=== PATIENT | female | born 1990 | race Caucasian/White ===

== ENCOUNTER 2018-08-16 06:47 | Observation (INO) | payer BC, MEDICAID ==
[2018-08-16] MEDS ORDERED: Misoprostol 50 MCG (1/2 of 100 MCG) Tab ONE (08:07)
[2018-08-16] MEDS ORDERED: Misoprostol 50 MCG (1/2 of 100 MCG) Tab VAG ONE ×2 (08:08→14:57)
[2018-08-16] MEDS ORDERED: Acetaminophen 325 MG Tab PO PRN (08:15)
[2018-08-16] MEDS ORDERED: Ondansetron 4 MG Tab.DIS PO PRN (08:15)
[2018-08-16] MEDS ORDERED: fentaNYL 100 MCG/2 ML SDV IVPUSH PRN (08:15)
[2018-08-16] MEDS ORDERED: Sodium Chloride 0.9% 10 ML Syringe FLUSH PRN (08:15)
--- NOTE | 2018-08-16 08:28 | PCM.LDHP ---
L&D History of Present Illness - General Date of Service: 08/16/18 (induction) Admit Problem/Dx: Patient Status Order with Admit Dx/Problem 08/16/18 08:15 Patient Status [ADT] Routine Admission Diagnosis/Problem Admission Diagnosis/Problem Source of Information: Patient History Limitations: Reports: No Limitations - History of Present Illness Introduction:: 28 year old G1 who is 41 2/7 weeks who is here for induction post dates GBS positive, will treat HGB 10.8 CE /50/0 midposition Healthy young lady no major health problems, non smoker Timing/Duration: Reports: minutes: (2-3) Location, : Reports: Abdomen Quality: Reports: Ache Improves with: Reports: None Worsens with: Reports: None - Related Data Allergies/Adverse Reactions: Allergies Allergy/AdvReac Type Severity Reaction Status Date / Time No Known Allergies Allergy Verified 08/14/18 12:18 Home Medications: Home Meds PNV95/Ferrous Fumarate/FA [ Vitamin Tablet] 1 each PO DAILY 08/14/18 [ History] Past Medical History Respiratory History: Reports: Asthma 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: : 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 (Approximate): (JAY 08/08/18) - Infectious Disease History Infectious Disease History: Reports: Chicken Pox - Past Surgical History GI Surgical History: Reports: Appendectomy Social & Family History - Family History Family Medical History: Noncontributory - Tobacco Use Smoking Status *Q: Never Smoker Second Hand Smoke Exposure: No - Caffeine Use Caffeine Use: Reports: Coffee Other Caffeine Use: 1 cup/day - Recreational Drug Use Recreational Drug Use: No H&P Review of Systems - Review of Systems: Review Of Systems: See Below General: Reports: No Symptoms HEENT: Reports: No Symptoms Pulmonary: Reports: No Symptoms Cardiovascular: Reports: No Symptoms Gastrointestinal: Reports: No Symptoms Genitourinary: Reports: No Symptoms Musculoskeletal: Reports: No Symptoms Skin: Reports: No Symptoms Psychiatric: Reports: No Symptoms Neurological: Reports: No Symptoms Hematologic/Lymphatic: Reports: No Symptoms Immunologic: Reports: No Symptoms L&D Exam - Exam Exam: See Below - Vital Signs Vital Signs: Last Vital Signs Temp 99.0 F 08/16/18 07:15 Pulse 93 08/16/18 07:15 Resp 18 08/16/18 07:15 BP 134/78 08/16/18 07:15 Pulse Ox 97 08/16/18 07:15 Weight: 182 lb - OB Specific Contraction Duration (sec): 50-60 Contraction Frequency (min): x4 Contraction Intensity: Mild Movement: Active Heart Tones: Present Heart Rate (FHR) Variability: Moderate (6-25 bmp) Presentation: Vertex Estimated Weight: 7/8 pounds - Byers Score Byers Score Cervix Position: Midposition Byers Score Consistency: Soft Byers Score Effacement: 51-70% Byers Score Dilation: 1-2 cm Byers Score 's Station: -1 ,0 Byers Score Total: 8 - Exam General: Alert, Oriented HEENT: PERRLA, Mucosa Moist & [place] Neck: Supple Lungs: Clear to Auscultation, Normal Respiratory Effort Cardiovascular: Regular Rate, Regular Rhythm GI/Abdominal Exam: Normal Bowel Sounds, Soft, Non-Tender Rectal Exam: Normal Exam Genitourinary: Normal external exam, Cervical dilitation, Enlarged uterus Back Exam: Normal Inspection, Full Range of Motion Extremities: Normal Inspection, No Pedal Edema, Normal Capillary Refill Skin: Warm, Dry Neurological: Cranial Nerves Intact, Reflexes Equal Bilateral Psychiatric: Alert, Normal Affect, Normal Mood - Patient Data Lab Results Last 24 hrs: Laboratory Results - last 24 hr 08/16/18 08/16/18 Range/Units 07:17 07:17 WBC 12.5 H (4.5-11.0) K/uL RBC 4.08 (3.30-5.50) M/uL Hgb 10.8 L (12.0-15.0) g/dL Hct 33.9 L (36.0-48.0) % MCV 83 (80-98) fL MCH 27 (27-31) pg MCHC 32 (32-36) % Plt Count 269 (150-400) K/uL Neut % (Auto) 73 H (36-66) % Lymph % (Auto) 19 L (24-44) % [place] % (Auto) 8 H (2-6) % Eos % (Auto) 1 L (2-4) % Baso % (Auto) 0 (0-1) % Urine Color Yellow Urine Appearance Slightly cloudy Urine pH 6.0 (4.5-8.0) Ur Specific [place] 1.015 (1.008-1.030) Urine Protein Negative (NEGATIVE) mg/dL Urine Glucose (UA) Normal (NEGATIVE) mg/dL Urine Ketones Negative (NEGATIVE) mg/dL Urine Occult Blood Moderate (NEGATIVE) Urine Nitrite Negative (NEGATIVE) Urine Bilirubin Negative (NEGATIVE) Urine Urobilinogen Normal (NORMAL) mg/dL Ur Leukocyte Esterase Large (NEGATIVE) Urine RBC 5-10 H (0-5) Urine WBC 10-20 H (0-5) Ur Epithelial Cells Many Amorphous Sediment Not seen Urine Bacteria Moderate Urine Mucus Not seen Result Diagrams: 08/16/18 07:17 - Problem List (1) Post-dates SNOMED Code(s): 65540356 ICD Code: O48.0 - POST-TERM Status: Acute Current Visit: Yes (2) GBS (group B Streptococcus carrier), +RV culture, currently SNOMED Code(s): 2228838723241, 597164931, 9266717134591 ICD Code: O99.820 - STREPTOCOCCUS B CARRIER STATE COMPLICATING Status: Acute Current Visit: Yes (3) SNOMED Code(s): 13989476 ICD Code: Z34.90 - ENCNTR FOR SUPRVSN OF NORMAL , UNSP, UNSP TRIMESTER Status: Acute Current Visit: Yes Qualifiers: Weeks of gestation: 41 weeks Qualified Code(s): Z3A.41 - 41 weeks gestation of Problem List Initiated/Reviewed/Updated: Yes Orders Last 24hrs: Active Orders 24 hr Category Date Time Status Patient Status [ADT] Routine ADT 08/16/18 08:15 Ordered Ambulate [RC] PER UNIT ROUTINE Care 08/16/18 08:15 Ordered Antiembolic Devices [RC] .Routine Care 08/16/18 08:18 Ordered Communication Order [RC] ASDIRECTED Care 08/16/18 08:15 Ordered Communication Order [RC] Per Unit Routine Care 08/16/18 08:22 Ordered Communication Order [RC] Per Unit Routine Care 08/16/18 08:22 Ordered Communication Order [RC] Per Unit Routine Care 08/16/18 08:22 Ordered Non Stress Test [RC] Click to Edit Care 08/16/18 08:15 Ordered Nitrous Oxide Delivery [RC] ASDIRECTED Care 08/16/18 08:22 Ordered Notify Provider Vital Signs [RC] PRN Care 08/16/18 08:15 Ordered Notify Provider [RC] PRN Care 08/16/18 08:15 Ordered Oxygen Therapy [RC] ASDIRECTED Care 08/16/18 08:22 Ordered Pulse Oximetry [RC] ASDIRECTED Care 08/16/18 08:22 Ordered Up ad Autumn [RC] ASDIRECTED Care 08/16/18 08:15 Ordered VTE/DVT Education [RC] Click to Edit Care 08/16/18 08:18 Ordered Verify Patient Consent Obtain [RC] ASDIRECTED Care 08/16/18 08:22 Ordered Vital Signs [RC] PER UNIT ROUTINE Care 08/16/18 08:15 Ordered Vital Signs [RC] PER UNIT ROUTINE Care 08/16/18 08:22 Ordered Clear Liquid Diet [DIET] Diet 08/16/18 Lunch Ordered DRUG SCREEN, URINE [URCHEM] Routine Lab 08/16/18 08:15 Ordered Acetaminophen [Tylenol] Med 08/16/18 08:15 Ordered 650 mg PO Q4H PRN Ondansetron [Zofran ODT] Med 08/16/18 08:15 Ordered 4 mg PO Q4H PRN Oxytocin/Normal Saline [Pitocin in NS 20 Units/1,000 ML Med 08/16/18 08:20 Ordered ] 20 unit in 1,000 ml IV ONETIME Penicillin G Potassium [Pfizerpen] 2.5 millunits Med 08/16/18 08:30 Ordered Sodium Chloride 0.9% [Normal Saline] 50 ml IV Q4H Penicillin G Potassium [Pfizerpen] 5 millunits Med 08/16/18 08:20 Ordered Sodium Chloride 0.9% [Normal Saline] 100 ml IV ONETIME Sodium Chloride 0.9% [Saline Flush] Med 08/16/18 08:15 Ordered 10 ml FLUSH ASDIRECTED PRN fentaNYL [Sublimaze] Med 08/16/18 08:15 Ordered 100 mcg IVPUSH Q1H PRN DVT/VTE Prophylaxis Reflex [OM.PC] Routine Oth 08/16/18 08:15 Ordered Saline Lock Insert [OM.PC] Routine Oth 08/16/18 08:15 Ordered Resuscitation Status Routine Resus Stat 08/16/18 08:15 Ordered Medication Orders Acetaminophen (Tylenol) 650 mg PO Q4H PRN PRN Reason: Pain (Mild 1-3) and fever Fentanyl (Sublimaze) 100 mcg IVPUSH Q1H PRN PRN Reason: Pain (moderate 4-6) Oxytocin/Sodium Chloride (Pitocin In Ns 20 Units/1,000 Ml) 20 unit in 1,000 mls @ 999 mls/hr IV ONETIME ONE; Protocol Stop: 08/16/18 09:20 Penicillin G Potassium 5 (millunits/ Sodium Chloride) 100 mls @ 200 mls/hr IV ONETIME ONE Stop: 08/16/18 08:49 Penicillin G Potassium 2.5 (millunits/ Sodium Chloride) 50 mls @ 100 mls/hr IV Q4H GÓMEZ Ondansetron HCl (Zofran Odt) 4 mg PO Q4H PRN PRN Reason: Nausea/Vomiting Sodium Chloride (Saline Flush) 10 ml FLUSH ASDIRECTED PRN PRN Reason: Keep Vein Open Assessment/Plan Comment:: 08/16/18 28 year old G1 41 2/7 week post dates induction byers score 8, currently rey every 2-3 minutes, 50 mcg miso placed at 0815 GBS positive, treated with PCN HGB 10.8 Rubella immune HIV neg ABO A pos intermittent monitoring after one hour of monitoring Anticipate a vaginal delivery later today
[2018-08-16] MEDS ORDERED: Penicillin G Potassium 5 MILLUNITS in Sodium Chloride 0.9% 100 ML IV ONE ×4 (08:30)
--- NOTE | 2018-08-16 11:52 | PCM.PNLD ---
Labor Progress Note - VS & Meds Vital Signs: Last Vital Signs Temp 98.3 F 08/16/18 10:48 Pulse 72 08/16/18 10:48 Resp 18 08/16/18 10:48 BP 135/89 08/16/18 10:48 Pulse Ox 99 08/16/18 10:48 Active Medications: Current Medications Acetaminophen (Tylenol) 650 mg PO Q4H PRN PRN Reason: Pain (Mild 1-3) and fever Fentanyl (Sublimaze) 100 mcg IVPUSH Q1H PRN PRN Reason: Pain (moderate 4-6) Penicillin G Potassium 2.5 (millunits/ Sodium Chloride) 50 mls @ 100 mls/hr IV Q4H GÓMEZ Ondansetron HCl (Zofran Odt) 4 mg PO Q4H PRN PRN Reason: Nausea/Vomiting Sodium Chloride (Saline Flush) 10 ml FLUSH ASDIRECTED PRN PRN Reason: Keep Vein Open Discontinued Medications Oxytocin/Sodium Chloride (Pitocin In Ns 20 Units/1,000 Ml) 20 unit in 1,000 mls @ 999 mls/hr IV ONETIME ONE; Protocol Stop: 08/16/18 09:20 Penicillin G Potassium 5 (millunits/ Sodium Chloride) 100 mls @ 200 mls/hr IV ONETIME ONE Stop: 08/16/18 08:59 Last Admin: 08/16/18 08:39 Dose: 200 mls/hr Misoprostol (Cytotec) 50 mcg VAG ONETIME ONE Stop: 08/16/18 08:09 Last Admin: 08/16/18 08:10 Dose: 50 mcg Misoprostol (Cytotec) Confirm Administered Dose 50 mcg .ROUTE .STK-MED ONE Stop: 08/16/18 08:08 Last Admin: 08/16/18 08:09 Dose: Not Given - Uterine Contractions Uterine Monitoring Mode: External [place] Contraction Frequency (min): 1-2.5 Contraction Duration (sec): 30-70 Contraction Intensity: Mild to Moderate Uterine Resting Tone: Soft - Monitoring Heart Rate (FHR) Baseline: 140 Heart Rate (FHR) Variability: Moderate (6-25 bmp) Accelerations: Present, 15x15 Decelerations: None Strip Review: Category I - Vaginal Exam Dilation (cm): 1 Effacement (Percent): 80 Station: 0 Cervical Position: Midposition Sterile Vaginal Exam Performed By: Malena Antunez Vaginal Exam Comment: 50mcg Cytotec placed. - Labor Progress (Free Text) Labor Progress: contractions are sronger, but she is coping well. Cat one strip bloody show with exam, cervix remains the same DIl 1-2, 80 %, 0 Plan up and about will reassess at 1500 May given second dose of miso at that time.
[2018-08-16] MEDS: Penicillin G Potassium 2.5 MILLUNITS in Sodium Chloride 0.9% 50 ML IV SCH ×2 (12:23→16:18)
--- NOTE | 2018-08-16 15:05 | PCM.PNLD ---
Labor Progress Note - VS & Meds Vital Signs: Last Vital Signs Temp 98.3 F 08/16/18 10:48 Pulse 72 08/16/18 10:48 Resp 18 08/16/18 10:48 BP 135/89 08/16/18 10:48 Pulse Ox 99 08/16/18 10:48 Active Medications: Current Medications Acetaminophen (Tylenol) 650 mg PO Q4H PRN PRN Reason: Pain (Mild 1-3) and fever Fentanyl (Sublimaze) 100 mcg IVPUSH Q1H PRN PRN Reason: Pain (moderate 4-6) Penicillin G Potassium 2.5 (millunits/ Sodium Chloride) 50 mls @ 100 mls/hr IV Q4H GÓMEZ Last Admin: 08/16/18 12:23 Dose: 100 mls/hr Misoprostol (Cytotec) 50 mcg VAG ONETIME ONE Stop: 08/16/18 14:58 Ondansetron HCl (Zofran Odt) 4 mg PO Q4H PRN PRN Reason: Nausea/Vomiting Sodium Chloride (Saline Flush) 10 ml FLUSH ASDIRECTED PRN PRN Reason: Keep Vein Open Discontinued Medications Oxytocin/Sodium Chloride (Pitocin In Ns 20 Units/1,000 Ml) 20 unit in 1,000 mls @ 999 mls/hr IV ONETIME ONE; Protocol Stop: 08/16/18 09:20 Penicillin G Potassium 5 (millunits/ Sodium Chloride) 100 mls @ 200 mls/hr IV ONETIME ONE Stop: 08/16/18 08:59 Last Admin: 08/16/18 08:39 Dose: 200 mls/hr Misoprostol (Cytotec) 50 mcg VAG ONETIME ONE Stop: 08/16/18 08:09 Last Admin: 08/16/18 08:10 Dose: 50 mcg Misoprostol (Cytotec) Confirm Administered Dose 50 mcg .ROUTE .STK-MED ONE Stop: 08/16/18 08:08 Last Admin: 08/16/18 08:09 Dose: Not Given - Uterine Contractions Uterine Monitoring Mode: External [place] Contraction Frequency (min): 1.5-2.5 Contraction Duration (sec): 30-60 Contraction Intensity: Mild to Moderate Uterine Resting Tone: Soft - Monitoring Heart Rate (FHR) Baseline: 140 Heart Rate (FHR) Variability: Moderate (6-25 bmp) Accelerations: Present, 15x15 Decelerations: None Strip Review: Category I - Vaginal Exam Dilation (cm): 1 Effacement (Percent): 80 Station: 0 Cervical Position: Midposition Sterile Vaginal Exam Performed By: Malena Antunez Vaginal Exam Comment: 50mcg Cytotec placed. - Labor Progress (Free Text) Labor Progress: no change from this morning. repeated Miso dose at 50 mcg. Started the discussion about going home this evening and returning if labor starts or for induction with pitocin. Will talk more about this afternoon clinic hours.
--- NOTE | 2018-08-16 19:48 | PCM.PNLD ---
Labor Progress Note - VS & Meds Vital Signs: Last Vital Signs Temp 98.6 F 08/16/18 18:00 Pulse 87 08/16/18 18:30 Resp 18 08/16/18 18:30 BP 130/68 08/16/18 18:30 Pulse Ox 99 08/16/18 18:30 Active Medications: Current Medications Acetaminophen (Tylenol) 650 mg PO Q4H PRN PRN Reason: Pain (Mild 1-3) and fever Fentanyl (Sublimaze) 100 mcg IVPUSH Q1H PRN PRN Reason: Pain (moderate 4-6) Penicillin G Potassium 2.5 (millunits/ Sodium Chloride) 50 mls @ 100 mls/hr IV Q4H GÓMEZ Last Admin: 08/16/18 16:18 Dose: 100 mls/hr Ondansetron HCl (Zofran Odt) 4 mg PO Q4H PRN PRN Reason: Nausea/Vomiting Sodium Chloride (Saline Flush) 10 ml FLUSH ASDIRECTED PRN PRN Reason: Keep Vein Open Discontinued Medications Oxytocin/Sodium Chloride (Pitocin In Ns 20 Units/1,000 Ml) 20 unit in 1,000 mls @ 999 mls/hr IV ONETIME ONE; Protocol Stop: 08/16/18 09:20 Penicillin G Potassium 5 (millunits/ Sodium Chloride) 100 mls @ 200 mls/hr IV ONETIME ONE Stop: 08/16/18 08:59 Last Admin: 08/16/18 08:39 Dose: 200 mls/hr Misoprostol (Cytotec) 50 mcg VAG ONETIME ONE Stop: 08/16/18 08:09 Last Admin: 08/16/18 08:10 Dose: 50 mcg Misoprostol (Cytotec) Confirm Administered Dose 50 mcg .ROUTE .STK-MED ONE Stop: 08/16/18 08:08 Last Admin: 08/16/18 08:09 Dose: Not Given Misoprostol (Cytotec) 50 mcg VAG ONETIME ONE Stop: 08/16/18 14:58 Last Admin: 08/16/18 14:57 Dose: 50 mcg - Uterine Contractions Uterine Monitoring Mode: External [place] Contraction Frequency (min): 2-3 Contraction Duration (sec): 50-70 Contraction Intensity: Mild to Moderate Uterine Resting Tone: Soft - Monitoring Monitor Mode: Doppler/Auscultation Heart Rate (FHR) Baseline: 140 Heart Rate (FHR) Variability: Moderate (6-25 bmp) Accelerations: Present, 15x15 Decelerations: None Strip Review: Category I - Vaginal Exam Dilation (cm): 1.5 Effacement (Percent): 80 Station: 0 Cervical Position: Midposition Sterile Vaginal Exam Performed By: Malena Antunez Vaginal Exam Comment: no change in cervix - Labor Progress (Free Text) Labor Progress: no labor dispite contractions. Cervix remains the same. Plan send her home and return on am if no labor before. Reviewed signs and symptoms of labor and when to return. Ming[place] given for sleep for the next three nights. questions answered and induction scheduled for .
== END 2018-08-16 20:15 | disposition home or self-care (01) ==
LOC: JP.OB 06:47
PROVIDERS: ADMIT Nurse Practitioner Family; ATTEND Nurse Practitioner Family
DX: O48.0 Post-term pregnancy (principal); O99.820 Streptococcus B carrier state complicating pregnancy; Z3A.41 41 weeks gestation of pregnancy; Z79.899 Other long term (current) drug therapy
CPT/HCPCS: 36415; 80305; 81001; 85025; 99211; A9270; J2540; J7030; J7050

== ENCOUNTER 2018-08-17 16:53 | Inpatient (IN) | payer BC, MEDICAID ==
[2018-08-17] MEDS ORDERED: Acetaminophen 325 MG Tab PO PRN (17:38)
[2018-08-17] MEDS ORDERED: Sodium Chloride 0.9% 10 ML Syringe FLUSH PRN (17:38)
[2018-08-17] MEDS ORDERED: Penicillin G Potassium 5 MILLUNITS in Sodium Chloride 0.9% 50 ML IV ONE (17:43)
--- NOTE | 2018-08-17 18:05 | PCM.LDHP ---
L&D History of Present Illness - General Date of Service: 08/17/18 Admit Problem/Dx: Patient Status Order with Admit Dx/Problem 08/17/18 17:35 Admission Status [Patient Status] [ADT] Routine 08/17/18 17:39 Patient Status [ADT] Routine Admission Diagnosis/Problem Admission Diagnosis/Problem Source of Information: Patient History Limitations: Reports: No Limitations - Related Data Allergies/Adverse Reactions: Allergies Allergy/AdvReac Type Severity Reaction Status Date / Time No Known Allergies Allergy Verified 08/14/18 12:18 Home Medications: Home Meds PNV95/Ferrous Fumarate/FA [ Vitamin Tablet] 1 each PO DAILY 08/14/18 [ History] Past Medical History Respiratory History: Reports: Asthma 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: - Infectious Disease History Infectious Disease History: Reports: Chicken Pox - Past Surgical History GI Surgical History: Reports: Appendectomy Social & Family History - Family History Family Medical History: Noncontributory - Caffeine Use Caffeine Use: Reports: Coffee Other Caffeine Use: 1 cup/day H&P Review of Systems - Review of Systems: Review Of Systems: See Below General: Reports: No Symptoms HEENT: Reports: No Symptoms Pulmonary: Reports: No Symptoms Cardiovascular: Reports: No Symptoms Gastrointestinal: Reports: No Symptoms Genitourinary: Reports: No Symptoms Musculoskeletal: Reports: No Symptoms Skin: Reports: No Symptoms Psychiatric: Reports: No Symptoms Neurological: Reports: No Symptoms Hematologic/Lymphatic: Reports: No Symptoms Immunologic: Reports: No Symptoms L&D Exam - Exam Exam: See Below - Vital Signs Weight: 82.554 kg - OB Specific Contraction Intensity: Mild to Moderate Movement: Active Heart Tones: Present Heart Rate (FHR) Variability: Moderate (6-25 bmp) Presentation: Vertex - Brandt Score Brandt Score Cervix Position: Midposition Brandt Score Consistency: Soft Brandt Score Effacement: >80% Brandt Score Dilation: 1-2 cm Brandt Score 's Station: -1 ,0 Brandt Score Total: 9 - Exam General: Alert, Oriented HEENT: PERRLA, Conjunctiva Clear, EACs Clear, EOMI, Hearing Intact, Mucosa Moist & [place], Nares Patent, Normal Nasal Septum, Posterior Pharynx Clear, TMs Clear Neck: Supple, Trachea Midline Lungs: Clear to Auscultation, Normal Respiratory Effort Cardiovascular: Regular Rate, Regular Rhythm GI/Abdominal Exam: Normal Bowel Sounds, Soft, Non-Tender, No Organomegaly, No Distention, No Abnormal Bruit, No Mass, Pelvis Stable Rectal Exam: Normal Exam, Normal Rectal Tone Genitourinary: Normal external exam, Normal bimanual exam, Normal speculum exam Back Exam: Normal Inspection, Full Range of Motion Extremities: Normal Inspection, Normal Range of Motion, Non-Tender, No Pedal Edema, Normal Capillary Refill Skin: Warm, Dry, Intact Neurological: Cranial Nerves Intact, Reflexes Equal Bilateral Psychiatric: Alert, Normal Affect, Normal Mood - Patient Data Lab Results Last 24 hrs: Laboratory Results - last 24 hr 08/17/18 Range/Units 17:18 Membrane Rupture Positive H (NEGATIVE) - Problem List (1) PROM (premature rupture of membranes) SNOMED Code(s): 74563533 ICD Code: O42.90 - MIKE ROM, 7TH0 BETW RUPT & ONST LABR, UNSP WEEKS OF GEST Status: Acute Current Visit: Yes Qualifiers: PROM onset of labor timing: onset of labor within 24 hours of rupture PROM gestational age: full term Qualified Code(s): O42.02 - Full-term premature rupture of membranes, onset of labor within 24 hours of rupture (2) Post-dates SNOMED Code(s): 33667552 ICD Code: O48.0 - POST-TERM Status: Acute Current Visit: Yes Qualifiers: Post-term type: 40-42 weeks gestation Qualified Code(s): O48.0 - Post-term (3) GBS (group B Streptococcus carrier), +RV culture, currently SNOMED Code(s): 6053194869303, 203761875, 1579912832778 ICD Code: O99.820 - STREPTOCOCCUS B CARRIER STATE COMPLICATING Status: Acute Priority: High Current Visit: Yes (4) SNOMED Code(s): 56792067 ICD Code: Z34.90 - ENCNTR FOR SUPRVSN OF NORMAL , UNSP, UNSP TRIMESTER Status: Acute Current Visit: Yes Qualifiers: Weeks of gestation: 41 weeks Problem List Initiated/Reviewed/Updated: Yes Orders Last 24hrs: Active Orders 24 hr Category Date Time Status Admission Status [Patient Status] [ADT] Routine ADT 08/17/18 17:35 Active Patient Status [ADT] Routine ADT 08/17/18 17:39 Ordered Ambulate [RC] PER UNIT ROUTINE Care 08/17/18 17:38 Ordered Communication Order [RC] ASDIRECTED Care 08/17/18 17:39 Ordered Dietary Supplements [RC] BIDMEALS Care 08/17/18 17:44 Ordered Heart Tones [RC] PER UNIT ROUTINE Care 08/17/18 17:39 Ordered Non Stress Test [RC] Click to Edit Care 08/17/18 17:39 Ordered May Shower [RC] ASDIRECTED Care 08/17/18 17:38 Ordered Notify Provider Vital Signs [RC] PRN Care 08/17/18 17:38 Ordered Notify Provider [RC] PRN Care 08/17/18 17:39 Ordered OB Check [OM.PC] Click to Edit Care 08/17/18 17:18 Ordered Up ad Autumn [RC] ASDIRECTED Care 08/17/18 17:38 Ordered VTE/DVT Education [RC] Click to Edit Care 08/17/18 17:42 Ordered Vital Signs [RC] PER UNIT ROUTINE Care 08/17/18 17:39 Ordered Regular Diet [DIET] Diet 08/17/18 Dinner Ordered CBC WITH AUTO DIFF [HEME] Routine Lab 08/17/18 17:38 Ordered DRUG SCREEN, URINE [URCHEM] Routine Lab 08/17/18 17:38 Ordered UA W/MICROSCOPIC [URIN] Routine Lab 08/17/18 17:02 Ordered Acetaminophen [Tylenol] Med 08/17/18 17:38 Ordered 650 mg PO Q4H PRN Ondansetron [Zofran] Med 08/17/18 17:38 Ordered 4 mg IV Q4H PRN Oxytocin/Normal Saline [Pitocin in NS 20 Units/1,000 ML Med 08/17/18 17:45 Ordered ] 20 unit in 1,000 ml IV TITRATE Penicillin G Potassium [Pfizerpen] 2.5 millunits Med 08/17/18 21:45 Ordered Sodium Chloride 0.9% [Normal Saline] 50 ml IV Q4H Penicillin G Potassium [Pfizerpen] 5 millunits Med 08/17/18 17:43 Ordered Sodium Chloride 0.9% [Normal Saline] 50 ml IV ONETIME Sodium Chloride 0.9% [Saline Flush] Med 08/17/18 17:38 Ordered 10 ml FLUSH ASDIRECTED PRN DVT/VTE Prophylaxis Reflex [OM.PC] Routine Oth 08/17/18 17:38 Ordered Saline Lock Insert [OM.PC] Routine Oth 08/17/18 17:39 Ordered Resuscitation Status Routine Resus Stat 08/17/18 17:38 Ordered Medication Orders Acetaminophen (Tylenol) 650 mg PO Q4H PRN PRN Reason: Pain (Mild 1-3) and fever Oxytocin/Sodium Chloride (Pitocin In Ns 20 Units/1,000 Ml) 20 unit in 1,000 mls @ 6 mls/hr IV TITRATE GÓMEZ; Protocol Penicillin G Potassium 5 (millunits/ Sodium Chloride) 50 mls @ 100 mls/hr IV ONETIME ONE Stop: 08/17/18 18:12 Penicillin G Potassium 2.5 (millunits/ Sodium Chloride) 50 mls @ 100 mls/hr IV Q4H GÓMEZ Ondansetron HCl (Zofran) 4 mg IV Q4H PRN PRN Reason: Nausea/Vomiting Sodium Chloride (Saline Flush) 10 ml FLUSH ASDIRECTED PRN PRN Reason: Keep Vein Open Assessment/Plan Comment:: 08/17/2018 28 here at 41 3/7 gestational weeks, she SROM at home and came in to be evaluated Amnisure was positive SVE-1.5/90/0 FHTs category one Contractions irregular Plan- Admit patient Continue to monitor for labor Continue to monitor FHTs Start pitocin per protocol now Start PCN G for GBS positive now Pain management per patient request Plan and anticipate a vaginal delivery
[2018-08-17] MEDS ORDERED: Lactated Ringers 1,000 ML IV ONE (20:57)
[2018-08-17] MEDS ORDERED: ePHEDrine 50 MG/ML SDV IVPUSH PRN (20:57)
--- NOTE | 2018-08-17 20:57 | PCM.PNLD ---
Labor Progress Note - VS & Meds Vital Signs: Last Vital Signs Temp 37.0 C 08/17/18 20:00 Pulse 83 08/17/18 20:00 Resp 16 08/17/18 20:00 BP 122/83 08/17/18 20:00 Pulse Ox 98 08/17/18 20:00 Active Medications: Current Medications Acetaminophen (Tylenol) 650 mg PO Q4H PRN PRN Reason: Pain (Mild 1-3) and fever Oxytocin/Sodium Chloride (Pitocin In Ns 20 Units/1,000 Ml) 20 unit in 1,000 mls @ 6 mls/hr IV TITRATE GÓMEZ; Protocol Last Titration: 08/17/18 20:08 Dose: 9 mls/hr Penicillin G Potassium 2.5 (millunits/ Sodium Chloride) 50 mls @ 100 mls/hr IV Q4H GÓMEZ Ondansetron HCl (Zofran) 4 mg IV Q4H PRN PRN Reason: Nausea/Vomiting Sodium Chloride (Saline Flush) 10 ml FLUSH ASDIRECTED PRN PRN Reason: Keep Vein Open Discontinued Medications Penicillin G Potassium 5 (millunits/ Sodium Chloride) 50 mls @ 100 mls/hr IV ONETIME ONE Stop: 08/17/18 18:12 Last Admin: 08/17/18 19:06 Dose: 100 mls/hr Penicillin G Potassium 2.5 (millunits/ Sodium Chloride) 50 mls @ 100 mls/hr IV Q4H GÓMEZ - Uterine Contractions Uterine Monitoring Mode: External [place] Contraction Frequency (min): 3-4 Contraction Duration (sec): 60-90 Contraction Intensity: Mild Uterine Resting Tone: Soft - Monitoring Monitor Mode: External [place] Heart Rate (FHR) Variability: Moderate (6-25 bmp) - Vaginal Exam Dilation (cm): 3 Effacement (Percent): 90 Station: 0 Cervical Position: Midposition Sterile Vaginal Exam Performed By: Allegra Clay - Labor Progress (Free Text) Labor Progress: 08/17/2018 Patient is starting to feel contractions more SVE-3/90/0 FHTs category one Patient currently on pitocin PCN first dose in Plan- Continue to monitor FHTs Continue to monitor labor Patient may be up ad jim Patient may get in tub Continue pitocin per protocol Continue PCN G per protocol Pain management per patient request Plan and anticipate a vaginal delivery
[2018-08-17] MEDS ORDERED: Lidocaine 1% 20 ML MDV INJECT ONE (20:58)
[2018-08-17] MEDS ORDERED: Oxytocin 10 Units/1 ML SDV IM ONE (21:00)
[2018-08-17] MEDS ORDERED: Penicillin G Potassium 2.5 MILLUNITS in Sodium Chloride 0.9% 50 ML IV SCH (22:00)
[2018-08-17] MEDS ORDERED: Ropivacaine 100 ML ONE (23:26)
[2018-08-17] MEDS: Penicillin G Potassium 2.5 MILLUNITS in Sodium Chloride 0.9% 50 ML IV SCH (23:37)
[2018-08-17] MEDS ORDERED: Naloxone 0.4 MG/ML SDV IVPUSH PRN (23:43)
--- NOTE | 2018-08-18 02:01 | ANES ---
DATE OF SERVICE: 08/17/2018 Ana is a 28-year-old female patient of [facility], in for labor. I was called late this evening for a labor epidural for the patient, was at the bedside at approximately 2255. A brief history and physical was reviewed with the patient. The patient denies any bleeding issues. Platelet count was 280. Denies having any real significant health issues. Very normal according to the patient. Risks and benefits were reviewed with the patient. The patient verbalizes her understanding, wishes to proceed with the labor epidural. The patient was then sat at the edge of the bed. Betadine prep x3 to the lumbar region was done. Sterile drape was placed. 1% lidocaine skin wheal and deep was done. A 17-gauge Tuohy needle was inserted at approximately the L4-5 position. Loss of resistance was achieved at approximately 6 cm. Negative paresthesia, negative heme, negative CSF were noted. I then proceeded to thread a catheter through the Touhy needle. Catheter was easily threaded. Tuohy needle was withdrawn. Catheter was pulled back to approximately 14 cm at the skin and secured at that time. Three milliliter test dose was given. The patient was laid in the supine position with left uterine displacement. After 3-4 minutes after the test dose, the patient was showing no signs of local anesthetic toxicity or intravascular injection of local anesthesia. I then proceeded to give the patient 12 mL of 0.2% ropivacaine bolus via the epidural and started her on 0.2% ropivacaine drip at 12 mL an hour. The patient's vital signs were stable. Please refer to the nurse's notes for vital signs. We will continue to monitor this patient closely. Arash Arevalo CRNA /[id number]
[2018-08-18] MEDS ORDERED: Lidocaine 1% 20 ML MDV INJECT ONE ×2 (03:00→03:59)
[2018-08-18] MEDS: Penicillin G Potassium 2.5 MILLUNITS in Sodium Chloride 0.9% 50 ML IV SCH ×3 (03:21→11:53)
[2018-08-18] MEDS ORDERED: Lidocaine 1% 50 ML MDV ONE (03:57)
[2018-08-18] MEDS ORDERED: Oxytocin 10 Units/1 ML SDV IM ONE (04:00)
[2018-08-18] MEDS: Ondansetron 4 MG/2 ML SDV IV PRN ×2 (04:51→09:06)
[2018-08-18] MEDS ORDERED: Ropivacaine 200 MG in Premix Bag 1 BAG EPIDUR SCH (05:15)
--- NOTE | 2018-08-18 05:32 | PCM.PNLD ---
Labor Progress Note - VS & Meds Vital Signs: Last Vital Signs Temp 37.4 C 08/18/18 03:00 Pulse 94 08/18/18 04:30 Resp 16 08/18/18 04:30 BP 130/79 08/18/18 04:30 Pulse Ox 98 08/18/18 04:30 Active Medications: Current Medications Acetaminophen (Tylenol) 650 mg PO Q4H PRN PRN Reason: Pain (Mild 1-3) and fever Ephedrine Sulfate (Ephedrine Sulfate) 10 mg IVPUSH ASDIRECTED PRN PRN Reason: Hypotension Oxytocin/Sodium Chloride (Pitocin In Ns 20 Units/1,000 Ml) 20 unit in 1,000 mls @ 6 mls/hr IV TITRATE [facility]; Protocol Last Titration: 08/18/18 01:39 Dose: 15 mls/hr Penicillin G Potassium 2.5 (millunits/ Sodium Chloride) 50 mls @ 100 mls/hr IV Q4H [facility] Last Admin: 08/18/18 03:21 Dose: 100 mls/hr Ropivacaine 200 mg/ Premix 100 mls @ 12 mls/hr EPIDUR ASDIRECTED [facility] Last Admin: 08/18/18 05:11 Dose: 12 mls/hr Naloxone HCl (Narcan) 0.1 mg IVPUSH Q5M PRN PRN Reason: IF RESP RATE LESS THAN 6 Ondansetron HCl (Zofran) 4 mg IV Q4H PRN PRN Reason: Nausea/Vomiting Last Admin: 08/18/18 04:51 Dose: 4 mg Sodium Chloride (Saline Flush) 10 ml FLUSH ASDIRECTED PRN PRN Reason: Keep Vein Open Discontinued Medications Penicillin G Potassium 5 (millunits/ Sodium Chloride) 50 mls @ 100 mls/hr IV ONETIME ONE Stop: 08/17/18 18:12 Last Admin: 08/17/18 19:06 Dose: 100 mls/hr Penicillin G Potassium 2.5 (millunits/ Sodium Chloride) 50 mls @ 100 mls/hr IV Q4H [facility] Lactated Ringer's (Ringers, Lactated) 1,000 mls @ 999 mls/hr IV .BOLUS ONE Stop: 08/17/18 21:57 Last Admin: 08/17/18 22:00 Dose: 999 mls/hr Ropivacaine (Naropin 0.2%) Confirm Administered Dose 100 mls @ as directed .ROUTE .STK-MED ONE Stop: 08/17/18 23:27 Lidocaine HCl (Xylocaine 1%) 20 ml INJECT ONETIME ONE Stop: 08/17/18 20:59 Last Admin: 08/18/18 03:58 Dose: Not Given Lidocaine HCl (Xylocaine 1%) 20 ml INJECT ONETIME ONE Stop: 08/18/18 03:01 Last Admin: 08/18/18 03:58 Dose: Not Given Lidocaine HCl (Xylocaine 1%) 50 ml INJECT ONETIME ONE Stop: 08/18/18 04:00 Lidocaine HCl (Xylocaine 1%) Confirm Administered Dose 100 ml .ROUTE .STK-MED ONE Stop: 08/18/18 03:58 Last Admin: 08/18/18 04:48 Dose: Not Given Oxytocin (Pitocin) 10 unit IM ONETIME ONE Stop: 08/17/18 21:01 Last Admin: 08/18/18 03:58 Dose: Not Given Oxytocin (Pitocin) 10 unit IM ONETIME ONE Stop: 08/18/18 04:01 - Uterine Contractions Uterine Monitoring Mode: External [place] Contraction Frequency (min): 1.5-3 Contraction Duration (sec): 50-100 Contraction Intensity: Moderate to Strong Uterine Resting Tone: Soft - Monitoring Monitor Mode: External Ultrasound Heart Rate (FHR) Variability: Moderate (6-25 bmp) - Vaginal Exam Dilation (cm): 10 Effacement (Percent): 100 Station: -1 Cervical Position: Midposition Sterile Vaginal Exam Performed By: Allegra Clay Vaginal Exam Comment: pt complete - Labor Progress (Free Text) Labor Progress: 08/18/2018 Patient has progressed nicely throughout the night Did get an epidural before midnight SVE-10/100/0 lots of caput FHTs category one Patient is having pain in lower abdomen and back at this time Plan- Will have anesthesia come and see if they can help her pain at this time Continue to monitor FHTs Continue to monitor labor Continue pitocin per protocol Continue PCN G per protocol Plan to start pushing soon Plan and anticipate a vaginal delivery
[2018-08-18] MEDS ORDERED: Acetaminophen 1,000 MG in Premix Bag 1 BAG IV ONE (06:43)
[2018-08-18] MEDS ORDERED: Carboprost Tromethamine 250 MCG/1 ML Amp ONE (08:17)
[2018-08-18] MEDS: Methylergonovine 0.2 MG/1 ML Amp ONE ×2 (08:23→09:14)
[2018-08-18] MEDS: Misoprostol 200 MCG Tab ONE ×2 (08:24→09:14)
[2018-08-18] MEDS ORDERED: Methylergonovine 0.2 MG/1 ML Amp IM PRN (08:46)
[2018-08-18] MEDS ORDERED: Misoprostol 100 MCG Tab PO ONE (08:49)
[2018-08-18] MEDS ORDERED: Misoprostol 200 MCG Tab RECTAL ONE (08:51)
[2018-08-18] MEDS ORDERED: Carboprost Tromethamine 250 MCG/1 ML Amp IM ONE (08:52)
[2018-08-18] MEDS ORDERED: Acetaminophen/Codeine 300-30 MG Tab PO PRN (09:41)
[2018-08-18] MEDS ORDERED: Acetaminophen 325 MG Tab, 50 Tab Bulk Bottle PO PRN (09:41)
[2018-08-18] MEDS ORDERED: Hydrocortisone 2.5% Crm 30 GM Tube TOP PRN (09:41)
[2018-08-18] MEDS ORDERED: Witch Hazel Medicated Pads 100/Jar TOP PRN (09:41)
[2018-08-18] MEDS ORDERED: Benzocaine 20% Top Spray 56 GM Bottle TOP PRN (09:41)
[2018-08-18] MEDS ORDERED: Ibuprofen 200 MG Tab, 24 Tab Bulk Bottle PO PRN (09:41)
[2018-08-18] MEDS ORDERED: Lanolin 100% Cream 40 GM Tube TOP PRN (09:41)
--- NOTE | 2018-08-18 10:06 | PCM.DEL ---
L & D Note - General Info Date of Service: 08/18/18 Mother's Due Date: 08/08/18 - Delivery Note Labor: Augmented by Oxytocin Delivery Outcome: Livebirth Infant Delivery Method: Spontaneous Vaginal Delivery-Single Delivery Mode: Vacuum Extraction Presentation: Right Occiput Anterior (RENO) (slight right handed compounde) Nuchal Cord: None Anesthesia Type: Epidural Episiotomy Type: Right Mediolateral (slight extension) Laceration: Sulcus (small repaired) Placenta: Intact, Spontaneous Cord: 3 Vessels Estimated Blood Loss: 800 Resuscitation Needed: Yes [place]: Bulb Syringe, Stimulated, Warmed Score 1 min: 5 Score 5 min: 6 Score 10 min: 8 Second Stage Interventions: Reports: Second Nurse Assessed Progress of Descent, Second Nurse Reviewed Contraction Pattern, Second Nurse Reviewed Heart Tones, Encouragement Given, Laboring Down, Pushing Effectively, Pushing, Feet in Foot Rests, Pushing, Knee Chest Position, Pushing, Left Side, Pushing, McRobert's Position, Pushing, Pulls Own Legs Back, Pushing, Right Side, Pushing , Squat Bar Pulling on Device, Pushing, Squat Bar Pulling on Sheet, Pushing, Stirrups/Leg Supports Delivery Comments (Free Text/Narrative):: 08/18/2018 28 yo at 41 4/7 weeks gestation delivered a viable male infant in [place] with partial compound presentation at 0811 on 08/18/2018. Patient had progressed very slowly throughout the night after being augmented with pitocin she progressed to complete about 0400. We labored down and began pushing at about 0548. Patient was willing to try multiple positions for pushing, we did side lying, ski bar, mc jiménez, and infant still needed some help. After education was done with the patient decision was made to apply the vacuum and assist mother while pushing. One popoff occurred and then four pulls on vacuum were used. Right mediolateral episiotomy was cut to assist with delivery after informed consent with patient. Moderate shoulder dystocia occurred with delivery of head at 0810 and shoulders at 0811. Jenny and suprapubic were both perform and shoulder released and delivery of rest of body occurred. Infant was slightly shocked at delivery so cord was double clamped and was brought to warmer for initial assessment. Second provider was in room and able to assess and do intervention with infant. Bag and mask O2 was used for one minute and infant came around and began to pink in color and cry more. was then brought to mother to be skin to skin. APGARS-5/6/8, weight 9lbs 2oz, length-21 inches. did have another time where he had wet lung sounds and not as pink in color, did deep suction and delee over 6ml of fluid out. Placenta spontaneous and intact, three vessel cord, mediolateral episiotomy with slight extension repaired in usual fashion. Right small sulcus repaired, one small figure 8 suture needed at back of vaginal wall. No other lacerations noted of vagina, labia, cervix or rectum. Patient did still have moderate amounts of bleeding so did a through internal review for other lacerations, none noted. PPH with an 800ml blood loss, patient was given IV pitocin, IM methergine, IM hemabate and Cytotec rectal before bleeding began to decrease. A second IV was placed and a type and screen done. Mother is now stable and infant is stable skin to skin with mother in labor and delivery room. Stages of labor- [id number] Vacuum Extractor Progress Note - Alternative Labor Strategies Considered Alternative Labor Strategies Considered:: Reports: Yes Strategies Considered:: Reports: Contraction Intensity Adequate, Position Changes Used to Facilitate Rotation & Descent, Empty Bladder, Rest Indications Considered:: Reports: Yes Indications:: Reports: Prolonged 2nd Stage Time Out:: Reports: Yes - Patient Prepared Patient Prepared:: Reports: Yes Informed Consent:: Reports: Yes Risks: Reports: Yes Risks Include:: Reports: Laceration, Shoulder Dystocia, Maternal Injury Anesthesia/Analgesia Adequate:: Reports: Yes - Probability of Success High Probability of Success:: Reports: Yes Weight Estimated:: Reports: LGA Patient Diabetic:: Reports: No Pelvis Adequate:: Reports: Yes Asynclitic:: Reports: No - Application Time Maximum Application Time & Number of Pop-Offs Predetermined:: Reports: Yes Type of Vacuum Used:: Reports: Cup: Soft Vacuum Extraction: Successful - Exit Strategy Exit strategy available:: Reports: Yes and resuscitation teams readily available:: Reports: Yes - General Info Date of Service: 08/18/18 Functional Status: Reports: Pain Controlled - Review of Systems General: Reports: No Symptoms HEENT: Reports: No Symptoms Pulmonary: Reports: No Symptoms Cardiovascular: Reports: No Symptoms Gastrointestinal: Reports: No Symptoms Genitourinary: Reports: No Symptoms Musculoskeletal: Reports: No Symptoms Skin: Reports: No Symptoms Neurological: Reports: No Symptoms Psychiatric: Reports: No Symptoms - Patient Data Vitals - Most Recent: Last Vital Signs Temp 37.9 C 08/18/18 06:50 Pulse 94 08/18/18 04:30 Resp 16 08/18/18 04:30 BP 130/79 08/18/18 04:30 Pulse Ox 98 08/18/18 04:30 Weight - Most Recent: 79.379 kg I&O - Last 24 Hours: Intake & Output 08/17/18 08/18/18 08/18/18 22:59 06:59 14:59 Intake Total 100 Output Total 650 Balance -650 100 Lab Results Last 24 Hours: Laboratory Results - last 24 hr 08/17/18 08/17/18 08/17/18 Range/Units 17:02 17:18 17:38 WBC 12.2 H (4.5-11.0) K/uL RBC 4.33 (3.30-5.50) M/uL Hgb 11.3 L (12.0-15.0) g/dL Hct 35.6 L (36.0-48.0) % MCV 82 (80-98) fL MCH 26 L (27-31) pg MCHC 32 (32-36) % Plt Count 280 (150-400) K/uL Neut % (Auto) 73 H (36-66) % Lymph % (Auto) 17 L (24-44) % [place] % (Auto) 10 H (2-6) % Eos % (Auto) 0 L (2-4) % Baso % (Auto) 0 (0-1) % Urine Color Yellow Urine Appearance Clear Urine pH 5.0 (4.5-8.0) Ur Specific Kathleen 1.015 (1.008-1.030) Urine Protein Negative (NEGATIVE) mg/dL Urine Glucose (UA) Normal (NEGATIVE) mg/dL Urine Ketones Negative (NEGATIVE) mg/dL Urine Occult Blood Trace (NEGATIVE) Urine Nitrite Negative (NEGATIVE) Urine Bilirubin Negative (NEGATIVE) Urine Urobilinogen Normal (NORMAL) mg/dL Ur Leukocyte Esterase Small (NEGATIVE) Urine RBC 5-10 H (0-5) Urine WBC 5-10 H (0-5) Ur Epithelial Cells Few Amorphous Sediment Not seen Urine Bacteria Moderate Urine Mucus Not seen Membrane Rupture Positive H (NEGATIVE) Urine Opiates Screen (NEGATIVE) Ur Oxycodone Screen (NEGATIVE) Urine Methadone Screen (NEGATIVE) Ur Propoxyphene Screen (NEGATIVE) Ur Barbiturates Screen (NEGATIVE) Ur Tricyclics Screen (NEGATIVE) Ur Phencyclidine Scrn (NEGATIVE) Ur Amphetamine Screen (NEGATIVE) U Methamphetamines Scrn (NEGATIVE) Urine MDMA Screen (NEGATIVE) U Benzodiazepines Scrn (NEGATIVE) U Cocaine Metab Screen (NEGATIVE) U Marijuana (THC) Screen (NEGATIVE) Blood Type Gel Antibody Screen 08/17/18 08/18/18 08/18/18 Range/Units 17:38 08:59 09:02 WBC 19.2 H (4.5-11.0) K/uL RBC 4.12 (3.30-5.50) M/uL Hgb 10.7 L (12.0-15.0) g/dL Hct 34.1 L (36.0-48.0) % MCV 83 (80-98) fL MCH 26 L (27-31) pg MCHC 31 L (32-36) % Plt Count 246 (150-400) K/uL Neut % (Auto) (36-66) % Lymph % (Auto) (24-44) % [place] % (Auto) (2-6) % Eos % (Auto) (2-4) % Baso % (Auto) (0-1) % Urine Color Urine Appearance Urine pH (4.5-8.0) Ur Specific Kathleen (1.008-1.030) Urine Protein (NEGATIVE) mg/dL Urine Glucose (UA) (NEGATIVE) mg/dL Urine Ketones (NEGATIVE) mg/dL Urine Occult Blood (NEGATIVE) Urine Nitrite (NEGATIVE) Urine Bilirubin (NEGATIVE) Urine Urobilinogen (NORMAL) mg/dL Ur Leukocyte Esterase (NEGATIVE) Urine RBC (0-5) Urine WBC (0-5) Ur Epithelial Cells Amorphous Sediment Urine Bacteria Urine Mucus Membrane Rupture (NEGATIVE) Urine Opiates Screen Negative (NEGATIVE) Ur Oxycodone Screen Negative (NEGATIVE) Urine Methadone Screen Negative (NEGATIVE) Ur Propoxyphene Screen Negative (NEGATIVE) Ur Barbiturates Screen Negative (NEGATIVE) Ur Tricyclics Screen Negative (NEGATIVE) Ur Phencyclidine Scrn Negative (NEGATIVE) Ur Amphetamine Screen Negative (NEGATIVE) U Methamphetamines Scrn Negative (NEGATIVE) Urine MDMA Screen Negative (NEGATIVE) U Benzodiazepines Scrn Negative (NEGATIVE) U Cocaine Metab Screen Negative (NEGATIVE) U Marijuana (THC) Screen Negative (NEGATIVE) Blood Type A POSITIVE Gel Antibody Screen Negative Med Orders - Current: Current Medications Acetaminophen (Tylenol) 650 mg PO Q4H PRN PRN Reason: Pain (Mild 1-3) and fever Acetaminophen (Tylenol Bulk Bottle) 325 mg PO Q4H PRN PRN Reason: Pain Acetaminophen/Codeine Phosphate (Tylenol With Codeine No.3 300mg/30mg) 1 tab PO Q4H PRN PRN Reason: Pain (moderate 4-6) Benzocaine (Ulni-B-Omboeml 20% Hymera) 0 gm TOP Q4H PRN PRN Reason: Perineal Comfort Measure Docusate Sodium (Colace) 100 mg PO BID PRN PRN Reason: Constipation Emollient Ointment (Lansinoh Hpa) 0 gm TOP ASDIRECTED PRN PRN Reason: Sore Nipples Ephedrine Sulfate (Ephedrine Sulfate) 10 mg IVPUSH ASDIRECTED PRN PRN Reason: Hypotension Hydrocortisone (Proctozone-Hc 2.5% Crm) 0 gm TOP ASDIRECTED PRN PRN Reason: Itching Oxytocin/Sodium Chloride (Pitocin In Ns 20 Units/1,000 Ml) 20 unit in 1,000 mls @ 6 mls/hr IV TITRATE [facility]; Protocol Last Titration: 08/18/18 06:15 Dose: 18 mls/hr Penicillin G Potassium 2.5 (millunits/ Sodium Chloride) 50 mls @ 100 mls/hr IV Q4H [facility] Last Admin: 08/18/18 06:50 Dose: 100 mls/hr Ropivacaine 200 mg/ Premix 100 mls @ 12 mls/hr EPIDUR ASDIRECTED [facility] Last Admin: 08/18/18 05:11 Dose: 12 mls/hr Oxytocin/Sodium Chloride (Pitocin In Ns 20 Units/1,000 Ml) 20 unit in 1,000 mls @ 750 mls/hr IV TITRATE [facility]; Protocol Last Admin: 08/18/18 09:12 Dose: 250 munits/min, 750 mls/hr Ibuprofen (Motrin Bulk Bottle) 600 mg PO Q6H PRN PRN Reason: Pain Methylergonovine Maleate (Methergine) 0.2 mg IM Q4H PRN PRN Reason: Bleeding Last Admin: 08/18/18 08:23 Dose: 0.2 mg Naloxone HCl (Narcan) 0.1 mg IVPUSH Q5M PRN PRN Reason: IF RESP RATE LESS THAN 6 Ondansetron HCl (Zofran) 4 mg IV Q4H PRN PRN Reason: Nausea/Vomiting Last Admin: 08/18/18 09:06 Dose: 4 mg Sodium Chloride (Saline Flush) 10 ml FLUSH ASDIRECTED PRN PRN Reason: Keep Vein Open Witch Rosamaria (Tucks) 1 pad TOP ASDIRECTED PRN PRN Reason: Hemorrhoids Discontinued Medications Carboprost Tromethamine (Hemabate Ds) Confirm Administered Dose 250 mcg .ROUTE .STK-MED ONE Stop: 08/18/18 08:18 Last Admin: 08/18/18 09:14 Dose: Not Given Carboprost Tromethamine (Hemabate Ds) 250 mcg IM ONETIME ONE Stop: 08/18/18 08:53 Penicillin G Potassium 5 (millunits/ Sodium Chloride) 50 mls @ 100 mls/hr IV ONETIME ONE Stop: 08/17/18 18:12 Last Admin: 08/17/18 19:06 Dose: 100 mls/hr Penicillin G Potassium 2.5 (millunits/ Sodium Chloride) 50 mls @ 100 mls/hr IV Q4H [facility] Lactated Ringer's (Ringers, Lactated) 1,000 mls @ 999 mls/hr IV .BOLUS ONE Stop: 08/17/18 21:57 Last Admin: 08/17/18 22:00 Dose: 999 mls/hr Ropivacaine (Naropin 0.2%) Confirm Administered Dose 100 mls @ as directed .ROUTE .STK-MED ONE Stop: 08/17/18 23:27 Acetaminophen 1,000 mg/ Premix 100 mls @ 400 mls/hr IV NOW ONE Stop: 08/18/18 06:57 Last Admin: 08/18/18 07:10 Dose: 400 mls/hr Lidocaine HCl (Xylocaine 1%) 20 ml INJECT ONETIME ONE Stop: 08/17/18 20:59 Last Admin: 08/18/18 03:58 Dose: Not Given Lidocaine HCl (Xylocaine 1%) 20 ml INJECT ONETIME ONE Stop: 08/18/18 03:01 Last Admin: 08/18/18 03:58 Dose: Not Given Lidocaine HCl (Xylocaine 1%) 50 ml INJECT ONETIME ONE Stop: 08/18/18 04:00 Last Admin: 08/18/18 09:11 Dose: Not Given Lidocaine HCl (Xylocaine 1%) Confirm Administered Dose 100 ml .ROUTE .STK-MED ONE Stop: 08/18/18 03:58 Last Admin: 08/18/18 04:48 Dose: Not Given Methylergonovine Maleate (Methergine) Confirm Administered Dose 0.2 mg .ROUTE .STK-MED ONE Stop: 08/18/18 08:18 Last Admin: 08/18/18 09:14 Dose: Not Given Misoprostol (Cytotec) Confirm Administered Dose 800 mcg .ROUTE .STK-MED ONE Stop: 08/18/18 08:18 Last Admin: 08/18/18 09:14 Dose: Not Given Misoprostol (Cytotec) 800 mcg RECTAL ONETIME ONE Stop: 08/18/18 08:52 Last Admin: 08/18/18 08:24 Dose: 800 mcg Oxytocin (Pitocin) 10 unit IM ONETIME ONE Stop: 08/17/18 21:01 Last Admin: 08/18/18 03:58 Dose: Not Given Oxytocin (Pitocin) 10 unit IM ONETIME ONE Stop: 08/18/18 04:01 Last Admin: 08/18/18 09:09 Dose: Not Given - Exam General: Alert, Oriented, Cooperative HEENT: Pupils Equal, Pupils Reactive, EOMI, Mucous Membr. Moist/[place] Neck: Supple Lungs: Clear to Auscultation, Normal Respiratory Effort Cardiovascular: Regular Rate, Regular Rhythm GI/Abdominal Exam: Normal Bowel Sounds, Soft, Non-Tender, No Organomegaly, No Distention, No Abnormal Bruit, No Mass, Pelvis Stable (Female) Exam: Normal External Exam, Normal Speculum Exam, Normal Bimanual Exam, Enlarged Uterus, Vaginal Bleeding Back Exam: Normal Inspection, Full Range of Motion Extremities: Normal Inspection, Normal Range of Motion, Non-Tender, No Pedal Edema, Normal Capillary Refill Skin: Warm, Dry, Intact Wound/Incisions: Erythema Neurological: No New Focal Deficit Psy/Mental Status: Alert, Normal Affect, Normal Mood - Problem List & Annotations (1) PROM (premature rupture of membranes) SNOMED Code(s): 45378557 Code(s): O42.90 - MIKE ROM, 7TH0 BETW RUPT & ONST LABR, UNSP WEEKS OF GEST Status: Acute Current Visit: Yes Qualifiers: PROM onset of labor timing: onset of labor within 24 hours of rupture PROM gestational age: full term Qualified Code(s): O42.02 - Full-term premature rupture of membranes, onset of labor within 24 hours of rupture (2) Post-dates SNOMED Code(s): 46115406 Code(s): O48.0 - POST-TERM Status: Acute Current Visit: Yes Qualifiers: Post-term type: 40-42 weeks gestation Qualified Code(s): O48.0 - Post-term (3) GBS (group B Streptococcus carrier), +RV culture, currently SNOMED Code(s): 1609661825524, 513162914, 5694739340738 Code(s): O99.820 - STREPTOCOCCUS B CARRIER STATE COMPLICATING Status: Acute Priority: High Current Visit: Yes (4) SNOMED Code(s): 73387670 Code(s): Z34.90 - ENCNTR FOR SUPRVSN OF NORMAL , UNSP, UNSP TRIMESTER Status: Acute Current Visit: Yes Qualifiers: Weeks of gestation: 41 weeks (5) Maternal fever affecting labor SNOMED Code(s): 805838894, 001767855 Code(s): O75.2 - PYREXIA DURING LABOR, NOT ELSEWHERE CLASSIFIED Status: Acute Current Visit: Yes - Problem List Review Problem List Initiated/Reviewed/Updated: Yes - My Orders Last 24 Hours: My Active Orders 08/17/18 17:18 OB Check [OM.PC] Click to Edit 08/17/18 17:35 Admission Status [Patient Status] [ADT] Routine 08/17/18 17:38 Ambulate [RC] PER UNIT ROUTINE May Shower [RC] ASDIRECTED Notify Provider Vital Signs [RC] PRN Up ad Autumn [RC] ASDIRECTED Acetaminophen [Tylenol] 650 mg PO Q4H PRN Ondansetron [Zofran] 4 mg IV Q4H PRN Sodium Chloride 0.9% [Saline Flush] 10 ml FLUSH ASDIRECTED PRN DVT/VTE Prophylaxis Reflex [OM.PC] Routine Resuscitation Status Routine 08/17/18 17:39 Patient Status [ADT] Routine Communication Order [RC] ASDIRECTED Notify Provider [RC] PRN Vital Signs [RC] PER UNIT ROUTINE Saline Lock Insert [OM.PC] Routine 08/17/18 17:42 VTE/DVT Education [RC] Click to Edit 08/17/18 17:44 Dietary Supplements [RC] BIDMEALS 08/17/18 17:45 Oxytocin/Normal Saline [Pitocin in NS 20 Units/1,000 ML] 20 unit in 1,000 ml IV TITRATE 08/17/18 20:57 Communication Order [RC] ASDIRECTED Local Anesthetic Infusion Pump [RC] ASDIRECTED PCEA Epidural [RC] ASDIRECTED Urinary Catheter Assessment [RC] ASDIRECTED ePHEDrine [ePHEDrine sulfate] 10 mg IVPUSH ASDIRECTED PRN Epidural Catheter Management [OM.PC] Urgent 08/17/18 21:00 Insert Urinary Catheter [OM.PC] ASDIRECTED 08/17/18 23:00 Penicillin G Potassium [Pfizerpen] 2.5 millunits Sodium Chloride 0.9% [Normal Saline] 50 ml IV Q4H 08/17/18 23:43 Naloxone [Narcan] 0.1 mg IVPUSH Q5M PRN 08/17/18 Dinner Regular Diet [DIET] 08/18/18 05:15 Ropivacaine [Naropin 0.2%] 200 mg Premix Bag 1 bag EPIDUR ASDIRECTED 08/18/18 08:46 Methylergonovine [Methergine] 0.2 mg IM Q4H PRN 08/18/18 09:00 Oxytocin/Normal Saline [Pitocin in NS 20 Units/1,000 ML] 20 unit in 1,000 ml IV TITRATE 08/18/18 09:02 PATIENT RETYPE [BBK] Routine TYPE AND SCREEN [BBK] Routine 08/18/18 09:41 Patient Status [ADT] Routine Vital Signs [RC] PFP Acetaminophen [Tylenol Bulk Bottle] 325 mg PO Q4H PRN Acetaminophen/Codeine [Tylenol with Codeine No.3 300MG/30MG] 1 tab PO Q4H PRN Benzocaine [Eaxi-A-Astizei 20% Hymera] See Dose Instructions TOP Q4H PRN Docusate Sodium [Colace] 100 mg PO BID PRN Hydrocortisone [Proctozone-HC 2.5% Crm] 0 gm TOP ASDIRECTED PRN Ibuprofen [Motrin Bulk Bottle] 600 mg PO Q6H PRN Lanolin [Lansinoh HPA] 0 gm TOP ASDIRECTED PRN Witch Rosamaria [Tucks] 1 pad TOP ASDIRECTED PRN Assess Lochia [WOMSER] Per Unit Routine Assess Uterine Involution [WOMSER] Per Unit Routine 08/18/18 09:42 Ice Therapy [OM.PC] Per Unit Routine Perineal Care [OM.PC] Per Unit Routine Sitz Bath [OM.PC] Per Unit Routine 08/19/18 06:00 CBC WITH AUTO DIFF [HEME] Routine - Assessment Assessment:: 08/18/2018 28 yo G1 now P1 at 41 4/7 gestational weeks delivered viable male infant with vacuum assist delivery Episiotomy with extension repaired Small sulcus repaired Shoulder dystocia released with maneuvers Hemorrhage GBS positive Labs-A positive, HIV neg, Hep B neg, Hep C neg, RPR nonreactive, Rubella Immune , GBS positive, Hgb 11.2 - Plan Plan:: 08/17/2018 28 here at 41 3/7 gestational weeks, she SROM at home and came in to be evaluated Amnisure was positive SVE-1.5/90/0 FHTs category one Contractions irregular Plan- Admit patient Continue to monitor for labor Continue to monitor FHTs Start pitocin per protocol now Start PCN G for GBS positive now Pain management per patient request Plan and anticipate a vaginal delivery 08/18/2018 Routine cares Encourage and support Encourage and support good perineal care Monitor fundus and bleeding closely Sitz baths Placenta to pathology Pain medication per patient request CBC again tomorrow Plan discharge 48 hours due to PPH and GBS positive
--- NOTE | 2018-08-19 07:37 | PCM.PNPP ---
- General Info Date of Service: 08/19/18 Functional Status: Reports: Pain Controlled - Review of Systems General: Reports: No Symptoms HEENT: Reports: No Symptoms Pulmonary: Reports: No Symptoms Cardiovascular: Reports: No Symptoms Gastrointestinal: Reports: No Symptoms Genitourinary: Reports: No Symptoms Musculoskeletal: Reports: No Symptoms Skin: Reports: No Symptoms Neurological: Reports: No Symptoms Psychiatric: Reports: No Symptoms - General Info Date of Service: 08/19/18 - Patient Data Vital Signs - Most Recent: Last Vital Signs Temp 36.3 C 08/19/18 04:20 Pulse 72 08/19/18 04:20 Resp 16 08/19/18 04:20 BP 99/63 08/19/18 04:20 Pulse Ox 95 08/19/18 04:20 Weight - Most Recent: 79.379 kg I&O - Last 24 Hours: Intake & Output 08/18/18 08/19/18 08/19/18 22:59 06:59 14:59 Intake Total 600 800 Balance 600 800 Lab Results - Last 24 Hours: Laboratory Results - last 24 hr 08/18/18 08/18/18 08/19/18 Range/Units 08:59 09:02 06:00 WBC 19.2 H 14.6 H (4.5-11.0) K/uL RBC 4.12 3.32 (3.30-5.50) M/uL Hgb 10.7 L 9.0 L (12.0-15.0) g/dL Hct 34.1 L 27.9 L (36.0-48.0) % MCV 83 84 (80-98) fL MCH 26 L 27 (27-31) pg MCHC 31 L 32 (32-36) % Plt Count 246 209 (150-400) K/uL Neut % (Auto) 73 H (36-66) % Lymph % (Auto) 17 L (24-44) % [place]in % (Auto) 9 H (2-6) % Eos % (Auto) 1 L (2-4) % Baso % (Auto) 0 (0-1) % Blood Type A POSITIVE Gel Antibody Screen Negative Med Orders - Current: Current Medications Acetaminophen (Tylenol) 650 mg PO Q4H PRN PRN Reason: Pain (Mild 1-3) and fever Acetaminophen (Tylenol Bulk Bottle) 325 mg PO Q4H PRN PRN Reason: Pain Last Admin: 08/18/18 11:28 Dose: 650 mg Acetaminophen/Codeine Phosphate (Tylenol With Codeine No.3 300mg/30mg) 1 tab PO Q4H PRN PRN Reason: Pain (moderate 4-6) Benzocaine (Iikd-O-Kphmiom 20% [place]) 0 gm TOP Q4H PRN PRN Reason: Perineal Comfort Measure Docusate Sodium (Colace) 100 mg PO BID PRN PRN Reason: Constipation Emollient Ointment (Lansinoh Hpa) 0 gm TOP ASDIRECTED PRN PRN Reason: Sore Nipples Ephedrine Sulfate (Ephedrine Sulfate) 10 mg IVPUSH ASDIRECTED PRN PRN Reason: Hypotension Hydrocortisone (Proctozone-Hc 2.5% Crm) 0 gm TOP ASDIRECTED PRN PRN Reason: Itching Oxytocin/Sodium Chloride (Pitocin In Ns 20 Units/1,000 Ml) 20 unit in 1,000 mls @ 6 mls/hr IV TITRATE GÓMEZ; Protocol Last Titration: 08/18/18 06:15 Dose: 18 mls/hr Ropivacaine 200 mg/ Premix 100 mls @ 12 mls/hr EPIDUR ASDIRECTED GÓMEZ Last Admin: 08/18/18 05:11 Dose: 12 mls/hr Oxytocin/Sodium Chloride (Pitocin In Ns 20 Units/1,000 Ml) 20 unit in 1,000 mls @ 750 mls/hr IV TITRATE GÓMEZ; Protocol Last Admin: 08/18/18 09:12 Dose: 250 munits/min, 750 mls/hr Ibuprofen (Motrin Bulk Bottle) 600 mg PO Q6H PRN PRN Reason: Pain Last Admin: 08/18/18 11:27 Dose: 600 mg Methylergonovine Maleate (Methergine) 0.2 mg IM Q4H PRN PRN Reason: Bleeding Last Admin: 08/18/18 08:23 Dose: 0.2 mg Naloxone HCl (Narcan) 0.1 mg IVPUSH Q5M PRN PRN Reason: IF RESP RATE LESS THAN 6 Ondansetron HCl (Zofran) 4 mg IV Q4H PRN PRN Reason: Nausea/Vomiting Last Admin: 08/18/18 09:06 Dose: 4 mg Sodium Chloride (Saline Flush) 10 ml FLUSH ASDIRECTED PRN PRN Reason: Keep Vein Open Witalexandria Blank (Tucks) 1 pad TOP ASDIRECTED PRN PRN Reason: Hemorrhoids Discontinued Medications Carboprost Tromethamine (Hemabate Ds) Confirm Administered Dose 250 mcg .ROUTE .STK-MED ONE Stop: 08/18/18 08:18 Last Admin: 08/18/18 09:14 Dose: Not Given Carboprost Tromethamine (Hemabate Ds) 250 mcg IM ONETIME ONE Stop: 08/18/18 08:53 Last Admin: 08/18/18 08:55 Dose: 250 mcg Penicillin G Potassium 5 (millunits/ Sodium Chloride) 50 mls @ 100 mls/hr IV ONETIME ONE Stop: 08/17/18 18:12 Last Admin: 08/17/18 19:06 Dose: 100 mls/hr Penicillin G Potassium 2.5 (millunits/ Sodium Chloride) 50 mls @ 100 mls/hr IV Q4H GÓMEZ Penicillin G Potassium 2.5 (millunits/ Sodium Chloride) 50 mls @ 100 mls/hr IV Q4H GÓMEZ Last Admin: 08/18/18 11:53 Dose: Not Given Lactated Ringer's (Ringers, Lactated) 1,000 mls @ 999 mls/hr IV .BOLUS ONE Stop: 08/17/18 21:57 Last Admin: 08/17/18 22:00 Dose: 999 mls/hr Ropivacaine (Naropin 0.2%) Confirm Administered Dose 100 mls @ as directed .ROUTE .STK-MED ONE Stop: 08/17/18 23:27 Acetaminophen 1,000 mg/ Premix 100 mls @ 400 mls/hr IV NOW ONE Stop: 08/18/18 06:57 Last Admin: 08/18/18 07:10 Dose: 400 mls/hr Lidocaine HCl (Xylocaine 1%) 20 ml INJECT ONETIME ONE Stop: 08/17/18 20:59 Last Admin: 08/18/18 03:58 Dose: Not Given Lidocaine HCl (Xylocaine 1%) 20 ml INJECT ONETIME ONE Stop: 08/18/18 03:01 Last Admin: 08/18/18 03:58 Dose: Not Given Lidocaine HCl (Xylocaine 1%) 50 ml INJECT ONETIME ONE Stop: 08/18/18 04:00 Last Admin: 08/18/18 09:11 Dose: Not Given Lidocaine HCl (Xylocaine 1%) Confirm Administered Dose 100 ml .ROUTE .STK-MED ONE Stop: 08/18/18 03:58 Last Admin: 08/18/18 04:48 Dose: Not Given Methylergonovine Maleate (Methergine) Confirm Administered Dose 0.2 mg .ROUTE .STK-MED ONE Stop: 08/18/18 08:18 Last Admin: 08/18/18 09:14 Dose: Not Given Misoprostol (Cytotec) Confirm Administered Dose 800 mcg .ROUTE .STK-MED ONE Stop: 08/18/18 08:18 Last Admin: 08/18/18 09:14 Dose: Not Given Misoprostol (Cytotec) 800 mcg RECTAL ONETIME ONE Stop: 08/18/18 08:52 Last Admin: 08/18/18 08:24 Dose: 800 mcg Oxytocin (Pitocin) 10 unit IM ONETIME ONE Stop: 08/17/18 21:01 Last Admin: 08/18/18 03:58 Dose: Not Given Oxytocin (Pitocin) 10 unit IM ONETIME ONE Stop: 08/18/18 04:01 Last Admin: 08/18/18 09:09 Dose: Not Given - Interaction Infant Disposition, : in Room with Family Interaction: Holding Infant Feeding: Breastfed ; Nursed Well Support Person: Other (see below) - Recovery Exam Fundal Tone: Firm Fundal Level: At Umbilicus Fundal Placement: Midline Lochia Amount: Small Lochia Color: Rubra/Red Perineum Description: Edematous, Hemorrhoids Episiotomy/Laceration: Approximated Bladder Status: Voiding - Exam General: Alert, Oriented HEENT: Pupils Equal Neck: Supple Lungs: Clear to Auscultation, Normal Respiratory Effort Cardiovascular: Regular Rate, Regular Rhythm GI/Abdominal Exam: Normal Bowel Sounds, Soft, Non-Tender, No Organomegaly, No Distention, No Abnormal Bruit, No Mass, Pelvis Stable Extremities: Normal Inspection, Normal Range of Motion, Non-Tender, No Pedal Edema, Normal Capillary Refill Skin: Warm, Dry, Intact Wound/Incisions: Healing Well Neurological: No New Focal Deficit Psy/Mental Status: Alert, Normal Affect, Normal Mood - Problem List & Annotations (1) PROM (premature rupture of membranes) SNOMED Code(s): 90208770 Code(s): O42.90 - MKIE ROM, 7TH0 BETW RUPT & ONST LABR, UNSP WEEKS OF GEST Status: Acute Current Visit: Yes Qualifiers: PROM onset of labor timing: onset of labor within 24 hours of rupture PROM gestational age: full term Qualified Code(s): O42.02 - Full-term premature rupture of membranes, onset of labor within 24 hours of rupture (2) Post-dates SNOMED Code(s): 19830174 Code(s): O48.0 - POST-TERM Status: Acute Current Visit: Yes Qualifiers: Post-term type: 40-42 weeks gestation Qualified Code(s): O48.0 - Post-term (3) GBS (group B Streptococcus carrier), +RV culture, currently SNOMED Code(s): 3878321529819, 565416623, 5880739035771 Code(s): O99.820 - STREPTOCOCCUS B CARRIER STATE COMPLICATING Status: Acute Priority: High Current Visit: Yes (4) SNOMED Code(s): 51120297 Code(s): Z34.90 - ENCNTR FOR SUPRVSN OF NORMAL , UNSP, UNSP TRIMESTER Status: Acute Current Visit: Yes Qualifiers: Weeks of gestation: 41 weeks (5) Maternal fever affecting labor SNOMED Code(s): 079692534, 836232910 Code(s): O75.2 - PYREXIA DURING LABOR, NOT ELSEWHERE CLASSIFIED Status: Acute Current Visit: Yes - Problem List Review Problem List Initiated/Reviewed/Updated: Yes - My Orders Last 24 Hours: My Active Orders 08/18/18 08:46 Methylergonovine [Methergine] 0.2 mg IM Q4H PRN 08/18/18 09:00 Oxytocin/Normal Saline [Pitocin in NS 20 Units/1,000 ML] 20 unit in 1,000 ml IV TITRATE 08/18/18 09:41 Patient Status [ADT] Routine Vital Signs [RC] PFP Acetaminophen [Tylenol Bulk Bottle] 325 mg PO Q4H PRN Acetaminophen/Codeine [Tylenol with Codeine No.3 300MG/30MG] 1 tab PO Q4H PRN Benzocaine [Qtwm-B-Ngojahv 20% [place]] See Dose Instructions TOP Q4H PRN Docusate Sodium [Colace] 100 mg PO BID PRN Hydrocortisone [Proctozone-HC 2.5% Crm] 0 gm TOP ASDIRECTED PRN Ibuprofen [Motrin Bulk Bottle] 600 mg PO Q6H PRN Lanolin [Lansinoh HPA] 0 gm TOP ASDIRECTED PRN Witch Rosamaria [Tucks] 1 pad TOP ASDIRECTED PRN Assess Lochia [WOMSER] Per Unit Routine Assess Uterine Involution [WOMSER] Per Unit Routine 08/18/18 09:42 Ice Therapy [OM.PC] Per Unit Routine Perineal Care [OM.PC] Per Unit Routine Sitz Bath [OM.PC] Per Unit Routine - Assessment Assessment:: 08/18/2018 28 yo G1 now P1 at 41 4/7 gestational weeks delivered viable male infant with vacuum assist delivery Episiotomy with extension repaired Small sulcus repaired Shoulder dystocia released with maneuvers Hemorrhage GBS positive Labs-A positive, HIV neg, Hep B neg, Hep C neg, RPR nonreactive, Rubella Immune , GBS positive, Hgb 11.2 08/19/2018 Vaginal delivery with vacuum assist day one Episiotomy with extension repaired healing well Internal exam no signs of hematoma Shoulder dystocia released with maneuvers [id number] today GBS positive treated during labor well Fundus firm and bleeding decreasing Voiding and passing gas - Plan Plan:: 08/17/2018 28 here at 41 3/7 gestational weeks, she SROM at home and came in to be evaluated Amnisure was positive [id number]-1.590/0 FHTs category one Contractions irregular Plan- Admit patient Continue to monitor for labor Continue to monitor FHTs Start pitocin per protocol now Start PCN G for GBS positive now Pain management per patient request Plan and anticipate a vaginal delivery 08/18/2018 Routine cares Encourage and support Encourage and support good perineal care Monitor fundus and bleeding closely Sitz baths Placenta to pathology Pain medication per patient request CBC again tomorrow Plan discharge 48 hours due to PPH and GBS positive 08/19/2018 Continue routine cares Continue encourage and support Encourage and support good perineal care Monitor fundus and bleeding closely Sitz baths Pain medication per patient request IVs can be dc'd Plan discharge 48 hours due to PPH and GBS positive
[2018-08-19] MEDS: Ferrous Sulfate 325 MG Tab PO SCH ×2 (10:31→17:35)
[2018-08-19] MEDS: Docusate Sodium 100 MG Cap PO PRN ×2 (10:34→20:47)
[2018-08-20] MEDS: Ferrous Sulfate 325 MG Tab PO SCH (07:33)
[2018-08-20] MEDS: Docusate Sodium 100 MG Cap PO PRN (07:36)
--- NOTE | 2018-08-20 08:19 | PCM.PNPP ---
- General Info Date of Service: 08/20/18 (PPD 2 D/C) Admission Dx/Problem (Free Text): Patient Status Order with Admit Dx/Problem 08/17/18 17:35 Admission Status [Patient Status] [ADT] Routine 08/17/18 17:39 Patient Status [ADT] Routine Admission Diagnosis/Problem Admission Diagnosis/Problem Functional Status: Reports: Pain Controlled - Review of Systems General: Reports: No Symptoms HEENT: Reports: No Symptoms Pulmonary: Reports: No Symptoms Cardiovascular: Reports: No Symptoms Gastrointestinal: Reports: No Symptoms Genitourinary: Reports: Pain Musculoskeletal: Reports: No Symptoms Skin: Reports: No Symptoms Neurological: Reports: No Symptoms Psychiatric: Reports: No Symptoms - General Info Date of Service: 08/20/18 - Patient Data Vital Signs - Most Recent: Last Vital Signs Temp 96.9 F 08/20/18 02:00 Pulse 75 08/20/18 02:00 Resp 16 08/20/18 02:00 BP 98/53 L 08/20/18 02:00 Pulse Ox 97 08/20/18 02:00 Weight - Most Recent: 175 lb Lab Results - Last 24 Hours: Laboratory Results - last 24 hr 08/17/18 Range/Units 17:02 Urine pH 6.0 (4.5-8.0) Med Orders - Current: Current Medications Acetaminophen (Tylenol) 650 mg PO Q4H PRN PRN Reason: Pain (Mild 1-3) and fever Acetaminophen (Tylenol Bulk Bottle) 325 mg PO Q4H PRN PRN Reason: Pain Last Admin: 08/18/18 11:28 Dose: 650 mg Acetaminophen/Codeine Phosphate (Tylenol With Codeine No.3 300mg/30mg) 1 tab PO Q4H PRN PRN Reason: Pain (moderate 4-6) Benzocaine (Zqjo-Q-Idryilj 20% [place]) 0 gm TOP Q4H PRN PRN Reason: Perineal Comfort Measure Last Admin: 08/19/18 17:40 Dose: 1 spray Docusate Sodium (Colace) 100 mg PO BID PRN PRN Reason: Constipation Last Admin: 08/20/18 07:36 Dose: 100 mg Emollient Ointment (Lansinoh Hpa) 0 gm TOP ASDIRECTED PRN PRN Reason: Sore Nipples Last Admin: 08/19/18 17:41 Dose: 1 applic Ephedrine Sulfate (Ephedrine Sulfate) 10 mg IVPUSH ASDIRECTED PRN PRN Reason: Hypotension Ferrous Sulfate (Ferrous Sulfate) 325 mg PO BIDMEALS GÓMEZ Last Admin: 08/20/18 07:33 Dose: 325 mg Hydrocortisone (Proctozone-Hc 2.5% Crm) 0 gm TOP ASDIRECTED PRN PRN Reason: Itching Oxytocin/Sodium Chloride (Pitocin In Ns 20 Units/1,000 Ml) 20 unit in 1,000 mls @ 6 mls/hr IV TITRATE GÓMEZ; Protocol Last Titration: 08/18/18 06:15 Dose: 18 mls/hr Ropivacaine 200 mg/ Premix 100 mls @ 12 mls/hr EPIDUR ASDIRECTED GÓMEZ Last Admin: 08/18/18 05:11 Dose: 12 mls/hr Oxytocin/Sodium Chloride (Pitocin In Ns 20 Units/1,000 Ml) 20 unit in 1,000 mls @ 750 mls/hr IV TITRATE GÓMEZ; Protocol Last Admin: 08/18/18 09:12 Dose: 250 munits/min, 750 mls/hr Ibuprofen (Motrin Bulk Bottle) 600 mg PO Q6H PRN PRN Reason: Pain Last Admin: 08/18/18 11:27 Dose: 600 mg Methylergonovine Maleate (Methergine) 0.2 mg IM Q4H PRN PRN Reason: Bleeding Last Admin: 08/18/18 08:23 Dose: 0.2 mg Naloxone HCl (Narcan) 0.1 mg IVPUSH Q5M PRN PRN Reason: IF RESP RATE LESS THAN 6 Ondansetron HCl (Zofran) 4 mg IV Q4H PRN PRN Reason: Nausea/Vomiting Last Admin: 08/18/18 09:06 Dose: 4 mg Sodium Chloride (Saline Flush) 10 ml FLUSH ASDIRECTED PRN PRN Reason: Keep Vein Open Witch Rosamaria (Tucks) 1 pad TOP ASDIRECTED PRN PRN Reason: Hemorrhoids Last Admin: 08/19/18 17:39 Dose: 1 jar Discontinued Medications Carboprost Tromethamine (Hemabate Ds) Confirm Administered Dose 250 mcg .ROUTE .STK-MED ONE Stop: 08/18/18 08:18 Last Admin: 08/18/18 09:14 Dose: Not Given Carboprost Tromethamine (Hemabate Ds) 250 mcg IM ONETIME ONE Stop: 08/18/18 08:53 Last Admin: 08/18/18 08:55 Dose: 250 mcg Penicillin G Potassium 5 (millunits/ Sodium Chloride) 50 mls @ 100 mls/hr IV ONETIME ONE Stop: 08/17/18 18:12 Last Admin: 08/17/18 19:06 Dose: 100 mls/hr Penicillin G Potassium 2.5 (millunits/ Sodium Chloride) 50 mls @ 100 mls/hr IV Q4H GÓMEZ Penicillin G Potassium 2.5 (millunits/ Sodium Chloride) 50 mls @ 100 mls/hr IV Q4H GÓMEZ Last Admin: 08/18/18 11:53 Dose: Not Given Lactated Ringer's (Ringers, Lactated) 1,000 mls @ 999 mls/hr IV .BOLUS ONE Stop: 08/17/18 21:57 Last Admin: 08/17/18 22:00 Dose: 999 mls/hr Ropivacaine (Naropin 0.2%) Confirm Administered Dose 100 mls @ as directed .ROUTE .STK-MED ONE Stop: 08/17/18 23:27 Acetaminophen 1,000 mg/ Premix 100 mls @ 400 mls/hr IV NOW ONE Stop: 08/18/18 06:57 Last Admin: 08/18/18 07:10 Dose: 400 mls/hr Lidocaine HCl (Xylocaine 1%) 20 ml INJECT ONETIME ONE Stop: 08/17/18 20:59 Last Admin: 08/18/18 03:58 Dose: Not Given Lidocaine HCl (Xylocaine 1%) 20 ml INJECT ONETIME ONE Stop: 08/18/18 03:01 Last Admin: 08/18/18 03:58 Dose: Not Given Lidocaine HCl (Xylocaine 1%) 50 ml INJECT ONETIME ONE Stop: 08/18/18 04:00 Last Admin: 08/18/18 09:11 Dose: Not Given Lidocaine HCl (Xylocaine 1%) Confirm Administered Dose 100 ml .ROUTE .STK-MED ONE Stop: 08/18/18 03:58 Last Admin: 08/18/18 04:48 Dose: Not Given Methylergonovine Maleate (Methergine) Confirm Administered Dose 0.2 mg .ROUTE .STK-MED ONE Stop: 08/18/18 08:18 Last Admin: 08/18/18 09:14 Dose: Not Given Misoprostol (Cytotec) Confirm Administered Dose 800 mcg .ROUTE .STK-MED ONE Stop: 08/18/18 08:18 Last Admin: 08/18/18 09:14 Dose: Not Given Misoprostol (Cytotec) 800 mcg RECTAL ONETIME ONE Stop: 08/18/18 08:52 Last Admin: 08/18/18 08:24 Dose: 800 mcg Oxytocin (Pitocin) 10 unit IM ONETIME ONE Stop: 08/17/18 21:01 Last Admin: 08/18/18 03:58 Dose: Not Given Oxytocin (Pitocin) 10 unit IM ONETIME ONE Stop: 08/18/18 04:01 Last Admin: 08/18/18 09:09 Dose: Not Given - Infant Interaction Disposition, : [place] in Room with Family Infant Interaction: Holding Infant Feeding: Breastfed ; Nursed Well Support Person: Other (see below) - Recovery Exam Fundal Tone: Firm Fundal Level: 2 Fingerbreadths Below Umbilicus Fundal Placement: Midline Lochia Amount: Small Lochia Color: Rubra/Red Perineum Description: Edematous Episiotomy/Laceration: Approximated Bladder Status: Voiding Urinary Elimination: Not Voiding - Exam General: Alert, Oriented HEENT: Pupils Equal Neck: Supple Lungs: Clear to Auscultation, Normal Respiratory Effort Cardiovascular: Regular Rate, Regular Rhythm GI/Abdominal Exam: Normal Bowel Sounds, Soft, Non-Tender, No Mass, Pelvis Stable Extremities: Normal Inspection, Normal Range of Motion, Non-Tender, No Pedal Edema, Normal Capillary Refill Skin: Warm, Dry, Intact Wound/Incisions: Healing Well Neurological: No New Focal Deficit Psy/Mental Status: Alert, Normal Affect, Normal Mood - Problem List & Annotations (1) Maternal fever affecting labor SNOMED Code(s): 057605266, 998061077 Code(s): O75.2 - PYREXIA DURING LABOR, NOT ELSEWHERE CLASSIFIED Status: Acute Current Visit: Yes (2) Status post vacuum-assisted vaginal delivery SNOMED Code(s): 131034104, [id number] Code(s): Z87.59 - PERSONAL HISTORY OF COMP OF PREG, CHLDBRTH AND THE PUERP Status: Acute Current Visit: Yes (3) Laceration of vaginal wall or sulcus without perineal laceration during delivery SNOMED Code(s): 401276638 Code(s): O71.4 - OBSTETRIC HIGH VAGINAL LACERATION ALONE Status: Acute Current Visit: Yes (4) Shoulder dystocia during labor and delivery SNOMED Code(s): 28477830 Code(s): O66.0 - OBSTRUCTED LABOR DUE TO SHOULDER DYSTOCIA Status: Acute Current Visit: Yes (5) Perineal laceration SNOMED Code(s): 516404391 Code(s): WWR4340 - Status: Acute Current Visit: Yes (6) PPH ( hemorrhage) SNOMED Code(s): 43125524 Code(s): O72.1 - OTHER IMMEDIATE HEMORRHAGE Status: Acute Current Visit: Yes (7) PROM (premature rupture of membranes) SNOMED Code(s): 77822954 Code(s): O42.90 - MIKE ROM, 7TH0 BETW RUPT & ONST LABR, UNSP WEEKS OF GEST Status: Acute Current Visit: Yes Qualifiers: PROM onset of labor timing: onset of labor within 24 hours of rupture PROM gestational age: full term Qualified Code(s): O42.02 - Full-term premature rupture of membranes, onset of labor within 24 hours of rupture (8) Post-dates SNOMED Code(s): 39985437 Code(s): O48.0 - POST-TERM Status: Acute Current Visit: Yes Qualifiers: Post-term type: 40-42 weeks gestation Qualified Code(s): O48.0 - Post-term - Problem List Review Problem List Initiated/Reviewed/Updated: Yes - Assessment Assessment:: 08/18/2018 28 yo G1 now P1 at 41 4/7 gestational weeks delivered viable male infant with vacuum assist delivery Episiotomy with extension repaired Small sulcus repaired Shoulder dystocia released with maneuvers Hemorrhage GBS positive Labs-A positive, HIV neg, Hep B neg, Hep C neg, RPR nonreactive, Rubella Immune , GBS positive, Hgb 11.2 08/19/2018 Vaginal delivery with vacuum assist day one Episiotomy with extension repaired healing well Internal exam no signs of hematoma Shoulder dystocia released with maneuvers Uerpcdiqgs-xsx-[id number] today GBS positive treated during labor well Fundus firm and bleeding decreasing Voiding and passing gas 08/20/18 with operative vaginal delivery HGB 9 on iron supplement GBS, no fever, treated mood happy going well voiding, a little tender, flow light wants to go home - Plan Plan:: 08/17/2018 28 here at 41 3/7 gestational weeks, she SROM at home and came in to be evaluated Amnisure was positive SVE-1./0 FHTs category one Contractions irregular Plan- Admit patient Continue to monitor for labor Continue to monitor FHTs Start pitocin per protocol now Start PCN G for GBS positive now Pain management per patient request Plan and anticipate a vaginal delivery 08/18/2018 Routine cares Encourage and support Encourage and support good perineal care Monitor fundus and bleeding closely Sitz baths Placenta to pathology Pain medication per patient request CBC again tomorrow Plan discharge 48 hours due to PPH and GBS positive 08/19/2018 Continue routine cares Continue encourage and support Encourage and support good perineal care Monitor fundus and bleeding closely Sitz baths Pain medication per patient request IVs can be dc'd Plan discharge 48 hours due to PPH and GBS positive 08/20/18 has completed 48 stay, maybe discharged today discharge teaching on self cares and baby cares Needs a 6 week post visit with Allegra will see her next weds with baby in clinic.
== END 2018-08-20 14:19 | disposition home or self-care (01) | DRG 560 ==
LOC: JP.OBCHECK 16:53 → JP.OB 17:35 → OBSVTOIN 08-18 08:11 → JP.MS 08-18 08:12
PROVIDERS: ADMIT Advanced Practice Midwife; ATTEND Advanced Practice Midwife
PROC: 00HU33Z Insertion of Infusion Device into Spinal Canal, Percutaneous Approach (ICD-10-PCS; 2018-08-17)
PROC: 3E0R3BZ Introduction of Anesthetic Agent into Spinal Canal, Percutaneous Approach (ICD-10-PCS; 2018-08-17)
PROC: 10D07Z6 Extraction of Products of Conception, Vacuum, Via Natural or Artificial Opening (ICD-10-PCS; principal; 2018-08-18)
PROC: 0W8NXZZ Division of Female Perineum, External Approach (ICD-10-PCS; 2018-08-18)
PROC: 0KQM0ZZ Repair Perineum Muscle, Open Approach (ICD-10-PCS; 2018-08-18)
DX: O48.0 Post-term pregnancy (principal); O75.2 Pyrexia during labor, not elsewhere classified; Z3A.41 41 weeks gestation of pregnancy; O36.63X0 Maternal care for excessive fetal growth, third trimester, not applicable or unspecified; O99.824 Streptococcus B carrier state complicating childbirth; O66.0 Obstructed labor due to shoulder dystocia; O63.1 Prolonged second stage (of labor); Z37.0 Single live birth; O72.1 Other immediate postpartum hemorrhage; O70.9 Perineal laceration during delivery, unspecified
CPT/HCPCS: 36415; 51702; 59409; 80305-QW; 81001; 84112; 85025; 85027; 86850; 86900; 86901; 88307; 99211; A9270-GY; J0131; J2210; J2405; J2540; J2590; J2795; J7050; J7120

== ENCOUNTER 2020-04-05 03:01 | Inpatient (IN) | payer BC, MEDICAID ==
[2020-04-05] MEDS ORDERED: Misoprostol 50 MCG (1/2 of 100 MCG) Tab VAG ONE ×2 (07:30→11:30)
[2020-04-05] MEDS ORDERED: Sodium Chloride 0.9% 10 ML Syringe FLUSH PRN (08:34)
[2020-04-05] MEDS ORDERED: Naloxone 0.4 MG/ML SDV IVPUSH PRN (08:34)
[2020-04-05] MEDS ORDERED: diphenhydrAMINE 50 MG/ML SDV IVPUSH PRN ×2 (08:34)
[2020-04-05] MEDS ORDERED: Ondansetron 4 MG/2 ML SDV IV PRN (08:34)
[2020-04-05] MEDS ORDERED: Acetaminophen 325 MG Tab PO PRN (08:34)
[2020-04-05] MEDS ORDERED: ePHEDrine 50 MG/ML SDV IVPUSH PRN ×2 (08:34)
[2020-04-05] MEDS ORDERED: Lactated Ringers 1,000 ML IV ONE (08:34)
[2020-04-05] MEDS ORDERED: Ropivacaine 200 MG in Premix Bag 1 BAG EPIDUR SCH (08:45)
--- NOTE | 2020-04-05 09:47 | PCM.LDHP ---
L&D History of Present Illness - General Date of Service: 04/05/20 Admit Problem/Dx: Patient Status Order with Admit Dx/Problem 04/05/20 08:34 Patient Status [ADT] Routine Admission Diagnosis/Problem Admission Diagnosis/Problem Source of Information: Patient History Limitations: Reports: No Limitations - Related Data Allergies/Adverse Reactions: Allergies Allergy/AdvReac Type Severity Reaction Status Date / Time No Known Allergies Allergy Verified 08/14/18 12:18 Home Medications: Home Meds Pnv No.95/Ferrous Fum/Folic AC [ Vitamin Tablet] 1 each PO DAILY 08/14/18 [History] Past Medical History Respiratory History: Reports: Asthma Gastrointestinal History: Reports: None 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: - Infectious Disease History Infectious Disease History: Reports: Chicken Pox - Past Surgical History Respiratory Surgical History: Reports: None GI Surgical History: Reports: Appendectomy Social & Family History - Family History Family Medical History: No Pertinent Family History - Tobacco Use Tobacco Use Status *Q: Never Tobacco User Second Hand Smoke Exposure: No - Caffeine Use Caffeine Use: Reports: Coffee Other Caffeine Use: 1 cup/day - Recreational Drug Use Recreational Drug Use: No H&P Review of Systems - Review of Systems: Review Of Systems: See Below General: Reports: No Symptoms HEENT: Reports: No Symptoms Pulmonary: Reports: No Symptoms Cardiovascular: Reports: No Symptoms Gastrointestinal: Reports: No Symptoms Genitourinary: Reports: No Symptoms Musculoskeletal: Reports: No Symptoms Skin: Reports: No Symptoms Psychiatric: Reports: No Symptoms Neurological: Reports: No Symptoms Hematologic/Lymphatic: Reports: No Symptoms Immunologic: Reports: No Symptoms L&D Exam - Exam Exam: See Below - Vital Signs Vital Signs: Last Vital Signs Temp 36.4 C 04/05/20 09:00 Pulse 82 04/05/20 09:15 Resp 18 04/05/20 09:15 BP 110/73 04/05/20 09:15 Pulse Ox 98 04/05/20 09:15 Weight: 78.925 kg - OB Specific Contraction Duration (sec): 70-100 Contraction Frequency (min): 4-6 Contraction Intensity: Mild Movement: Active Heart Tones: Present Heart Rate (FHR) Variability: Moderate (6-25 bmp) - Brandt Score Brandt Score Cervix Position: Midposition Brandt Score Consistency: Soft Brandt Score Effacement: 51-70% Brandt Score Dilation: 1-2 cm Brandt Score Infant's Station: -2 Brandt Score Total: 7 - Exam General: Alert, Oriented HEENT: PERRLA, Conjunctiva Clear, EACs Clear, EOMI, Hearing Intact, Mucosa Moist & Oppelo, Nares Patent, Normal Nasal Septum, Posterior Pharynx Clear, Pupils Equal , Pupils Reactive, TMs Clear Neck: Supple, Trachea Midline Lungs: Clear to Auscultation, Normal Respiratory Effort Cardiovascular: Regular Rate, Regular Rhythm GI/Abdominal Exam: Normal Bowel Sounds, Soft, Non-Tender, No Organomegaly, No Distention, No Abnormal Bruit, No Mass, Pelvis Stable Rectal Exam: Normal Exam, Normal Rectal Tone Genitourinary: Normal external exam, Normal bimanual exam, Normal speculum exam Back Exam: Normal Inspection, Full Range of Motion Extremities: Normal Inspection, Normal Range of Motion, Non-Tender, No Pedal Edema, Normal Capillary Refill Skin: Warm, Dry, Intact Neurological: Cranial Nerves Intact, Reflexes Equal Bilateral DTR: 2+: Patella (R), Achilles (L) Psychiatric: Alert, Normal Affect, Normal Mood - Patient Data Lab Results Last 24 hrs: Laboratory Results - last 24 hr 04/05/20 04/05/20 04/05/20 Range/Units 07:00 07:33 07:33 WBC 10.2 (4.5-11.0) K/uL RBC 4.29 (3.30-5.50) M/uL Hgb 12.7 D (12.0-15.0) g/dL Hct 38.2 (36.0-48.0) % MCV 89 (80-98) fL MCH 30 (27-31) pg MCHC 33 (32-36) % Plt Count 199 (150-400) K/uL Neut % (Auto) 74 H (36-66) % Lymph % (Auto) 19 L (24-44) % [place] % (Auto) 7 H (2-6) % Eos % (Auto) 0 L (2-4) % Baso % (Auto) 0 (0-1) % Urine Color Yellow (YELLOW) Urine Appearance Clear (CLEAR) Urine pH 7.5 (5.0-8.0) Ur Specific [place] 1.025 (1.008-1.030) Urine Protein Negative (NEGATIVE) mg/dL Urine Glucose (UA) Negative (NEGATIVE) mg/dL Urine Ketones Negative (NEGATIVE) mg/dL Urine Occult Blood Negative (NEGATIVE) Urine Nitrite Negative (NEGATIVE) Urine Bilirubin Negative (NEGATIVE) Urine Urobilinogen 0.2 (0.2-1.0) EU/dL Ur Leukocyte Esterase Trace H (NEGATIVE) Urine RBC 0-5 (0-5) Urine WBC 0-5 (0-5) Ur Epithelial Cells Moderate Amorphous Sediment Many Urine Bacteria Moderate Urine Mucus Not seen Urine Opiates Screen (NEGATIVE) Ur Oxycodone Screen (NEGATIVE) Urine Methadone Screen (NEGATIVE) Ur Propoxyphene Screen (NEGATIVE) Ur Barbiturates Screen (NEGATIVE) Ur Tricyclics Screen (NEGATIVE) Ur Phencyclidine Scrn (NEGATIVE) Ur Amphetamine Screen (NEGATIVE) U Methamphetamines Scrn (NEGATIVE) Urine MDMA Screen (NEGATIVE) U Benzodiazepines Scrn (NEGATIVE) U Cocaine Metab Screen (NEGATIVE) U Marijuana (THC) Screen (NEGATIVE) SARS CoV-2 RNA Rapid CATHERINE Negative 04/05/20 Range/Units 07:33 WBC (4.5-11.0) K/uL RBC (3.30-5.50) M/uL Hgb (12.0-15.0) g/dL Hct (36.0-48.0) % MCV (80-98) fL MCH (27-31) pg MCHC (32-36) % Plt Count (150-400) K/uL Neut % (Auto) (36-66) % Lymph % (Auto) (24-44) % [place] % (Auto) (2-6) % Eos % (Auto) (2-4) % Baso % (Auto) (0-1) % Urine Color (YELLOW) Urine Appearance (CLEAR) Urine pH (5.0-8.0) Ur Specific [place] (1.008-1.030) Urine Protein (NEGATIVE) mg/dL Urine Glucose (UA) (NEGATIVE) mg/dL Urine Ketones (NEGATIVE) mg/dL Urine Occult Blood (NEGATIVE) Urine Nitrite (NEGATIVE) Urine Bilirubin (NEGATIVE) Urine Urobilinogen (0.2-1.0) EU/dL Ur Leukocyte Esterase (NEGATIVE) Urine RBC (0-5) Urine WBC (0-5) Ur Epithelial Cells Amorphous Sediment Urine Bacteria Urine Mucus Urine Opiates Screen Negative (NEGATIVE) Ur Oxycodone Screen Negative (NEGATIVE) Urine Methadone Screen Negative (NEGATIVE) Ur Propoxyphene Screen Negative (NEGATIVE) Ur Barbiturates Screen Negative (NEGATIVE) Ur Tricyclics Screen Negative (NEGATIVE) Ur Phencyclidine Scrn Negative (NEGATIVE) Ur Amphetamine Screen Negative (NEGATIVE) U Methamphetamines Scrn Negative (NEGATIVE) Urine MDMA Screen Negative (NEGATIVE) U Benzodiazepines Scrn Negative (NEGATIVE) U Cocaine Metab Screen Negative (NEGATIVE) U Marijuana (THC) Screen Negative (NEGATIVE) SARS CoV-2 RNA Rapid CATHERINE Result Diagrams: 04/05/20 07:33 - Problem List (1) SNOMED Code(s): 13899797 ICD Code: Z34.90 - ENCNTR FOR SUPRVSN OF NORMAL , UNSP, UNSP TRIMESTER Status: Acute Current Visit: Yes Qualifiers: Weeks of gestation: 39 weeks Qualified Code(s): Z3A.39 - 39 weeks gestation of (2) History of macrosomia in in prior , currently SNOMED Code(s): 45119811962662, 23438683366550 ICD Code: O09.299 - SUPRVSN OF PREG W POOR REPRODCTV OR OBSTET HISTORY, UNSP TRI Status: Acute Priority: High Current Visit: Yes (3) History of shoulder dystocia in prior , currently SNOMED Code(s): 880782454, 672800419 ICD Code: O09.299 - SUPRVSN OF PREG W POOR REPRODCTV OR OBSTET HISTORY, UNSP TRI Status: Acute Priority: High Current Visit: Yes (4) History of hemorrhage, currently SNOMED Code(s): 159587755, 226044466 ICD Code: O09.299 - SUPRVSN OF PREG W POOR REPRODCTV OR OBSTET HISTORY, UNSP TRI Status: Acute Priority: High Current Visit: Yes (5) History of maternal third degree perineal laceration, currently SNOMED Code(s): 974218707, 394344110, 920340782 ICD Code: O09.299 - SUPRVSN OF PREG W POOR REPRODCTV OR OBSTET HISTORY, UNSP TRI Status: Acute Priority: High Current Visit: Yes Problem List Initiated/Reviewed/Updated: Yes Orders Last 24hrs: Active Orders 24 hr Category Date Time Status Patient Status [ADT] Routine ADT 04/05/20 08:34 Active Ambulate [RC] PER UNIT ROUTINE Care 04/05/20 08:34 Active Communication Order [RC] ASDIRECTED Care 04/05/20 08:34 Active Communication Order [RC] ASDIRECTED Care 04/05/20 08:34 Active Communication Order [RC] ROUTINE Care 04/05/20 08:34 Active Communication Order [RC] ROUTINE Care 04/05/20 08:34 Active Communication Order [RC] ROUTINE Care 04/05/20 08:34 Active Heart Tones [RC] PER UNIT ROUTINE Care 04/05/20 08:34 Active Non Stress Test [RC] Click to Edit Care 04/05/20 08:34 Active Insert Urinary Catheter [OM.PC] ASDIRECTED Care 04/05/20 08:45 Ordered Local Anesthetic Infusion Pump [RC] ASDIRECTED Care 04/05/20 08:34 Active Notify Provider Vital Signs [RC] PRN Care 04/05/20 08:34 Active Notify Provider [RC] PRN Care 04/05/20 08:34 Active Oxygen Therapy [RC] ASDIRECTED Care 04/05/20 08:34 Active PCEA Epidural [RC] ASDIRECTED Care 04/05/20 08:34 Active Peripheral IV Care [RC] . DIRECTED Care 04/05/20 08:34 Active Pulse Oximetry [RC] ASDIRECTED Care 04/05/20 08:34 Active Up ad Autumn [RC] ASDIRECTED Care 04/05/20 08:34 Active Up to Chair [RC] QID Care 04/05/20 08:34 Active Urinary Catheter Assessment [RC] ASDIRECTED Care 04/05/20 08:34 Active VTE/DVT Education [RC] Click to Edit Care 04/05/20 08:39 Active Vital Signs [RC] PER UNIT ROUTINE Care 04/05/20 08:34 Active Regular Diet [DIET] Diet 04/05/20 Breakfast Active BPP w NST [US] Routine Exams 04/05/20 07:30 Taken Acetaminophen [TylenoL] Med 04/05/20 08:34 Active 650 mg PO Q4H PRN Naloxone [Narcan] Med 04/05/20 08:34 Active 0.1 mg IVPUSH ASDIRECTED PRN Ondansetron [Zofran] Med 04/05/20 08:34 Active 4 mg IV Q4H PRN Ropivacaine [Naropin 0.2%] 200 mg Med 04/05/20 08:45 Active Premix Bag 1 bag EPIDUR ASDIRECTED Sodium Chloride 0.9% [Saline Flush] Med 04/05/20 08:34 Active 10 ml FLUSH ASDIRECTED PRN diphenhydrAMINE [Benadryl] Med 04/05/20 08:34 Active 25 mg IVPUSH Q6H PRN diphenhydrAMINE [Benadryl] Med 04/05/20 08:34 Active 50 mg IVPUSH Q6H PRN ePHEDrine [ePHEDrine sulfate] Med 04/05/20 08:34 Active 10 mg IVPUSH ASDIRECTED PRN DVT/VTE Prophylaxis Reflex [OM.PC] Routine Oth 04/05/20 08:34 Ordered Epidural Catheter Management [OM.PC] Routine Oth 04/05/20 08:34 Ordered Epidural Catheter Management [OM.PC] Urgent Oth 04/05/20 08:34 Ordered Peripheral IV Insertion Pediatric [OM.PC] Routine Oth 04/05/20 08:34 Ordered Saline Lock Insert [OM.PC] Routine Oth 04/05/20 08:34 Ordered Resuscitation Status Routine Resus Stat 04/05/20 08:34 Ordered Medication Orders Acetaminophen (Tylenol) 650 mg PO Q4H PRN PRN Reason: Pain (Mild 1-3) and fever Diphenhydramine HCl (Benadryl) 25 mg IVPUSH Q6H PRN PRN Reason: Itching Diphenhydramine HCl (Benadryl) 50 mg IVPUSH Q6H PRN PRN Reason: Itching Ephedrine Sulfate (Ephedrine Sulfate) 10 mg IVPUSH ASDIRECTED PRN PRN Reason: Hypotension Ropivacaine 200 mg/ Premix 100 mls @ 0 mls/hr EPIDUR ASDIRECTED GÓMEZ Naloxone HCl (Narcan) 0.1 mg IVPUSH ASDIRECTED PRN PRN Reason: Oversedation Ondansetron HCl (Zofran) 4 mg IV Q4H PRN PRN Reason: Nausea/Vomiting Sodium Chloride (Saline Flush) 10 ml FLUSH ASDIRECTED PRN PRN Reason: Keep Vein Open Assessment/Plan Comment:: 04/05/2020 29 yo here at 39 0/7 weeks gestation for a medical induction of labor due to history of macrosomic , history of PPH, history of moderate shoulder dystocia, history of large 3rd laceration with vacuum assisted delivery. Patient was explained risks and benefits of induction and patient desires and verbalizes understanding. SVE-1-2/60/-2 FHTs category one Cytotec 50mcg placed vaginally Labs-A positive, Hep B neg, Hep C neg, HIV neg, RPR nonreactive, Rubella Immune, GBS negative, COVID negative Plan- Continue to monitor for labor Continue to monitor FHTS Patient may eat regular diet Patient may be up ad autumn Patient may get in tub or shower Plan and anticipate a vaginal delivery
--- NOTE | 2020-04-05 10:49 | US ---
BPP w NST INDICATION: macrosomia COMPARISON: None FINDINGS: Single live IUP in: Cephalic position. heart rate: 142 BPM. Biophysical profile score: 8/8. MARGARET: 16.9 cm. IMPRESSION: Normal biophysical profile score of 8/8.
[2020-04-05] MEDS ORDERED: Sodium Chloride 0.9% 1,000 ML IV SCH (14:00)
[2020-04-05] MEDS ORDERED: Ropivacaine 100 ML ONE (14:24)
--- NOTE | 2020-04-05 15:13 | PCM.PNLD ---
Labor Progress Note - VS & Meds Vital Signs: Last Vital Signs Temp 36.6 C 04/05/20 11:54 Pulse 101 H 04/05/20 11:54 Resp 18 04/05/20 11:54 BP 113/65 04/05/20 11:54 Pulse Ox 93 L 04/05/20 11:54 Active Medications: Current Medications Acetaminophen (Tylenol) 650 mg PO Q4H PRN PRN Reason: Pain (Mild 1-3) and fever Diphenhydramine HCl (Benadryl) 25 mg IVPUSH Q6H PRN PRN Reason: Itching Diphenhydramine HCl (Benadryl) 50 mg IVPUSH Q6H PRN PRN Reason: Itching Ephedrine Sulfate (Ephedrine Sulfate) 10 mg IVPUSH ASDIRECTED PRN PRN Reason: Hypotension Ropivacaine 200 mg/ Premix 100 mls @ 0 mls/hr EPIDUR ASDIRECTED GÓMEZ Oxytocin/Sodium Chloride (Pitocin In Ns 20 Units/1,000 Ml) 20 unit in 1,000 mls @ 6 mls/hr IV TITRATE GÓMEZ; Protocol Last Titration: 04/05/20 13:00 Dose: 4 munits/min, 12 mls/hr Documented by: Sodium Chloride (Normal Saline) 1,000 mls @ 999 mls/hr IV ASDIRECTED GÓMEZ Last Admin: 04/05/20 14:10 Dose: 999 mls/hr Documented by: Naloxone HCl (Narcan) 0.1 mg IVPUSH ASDIRECTED PRN PRN Reason: Oversedation Ondansetron HCl (Zofran) 4 mg IV Q4H PRN PRN Reason: Nausea/Vomiting Sodium Chloride (Saline Flush) 10 ml FLUSH ASDIRECTED PRN PRN Reason: Keep Vein Open Discontinued Medications Lactated Ringer's (Ringers, Lactated) 1,000 mls @ 999 mls/hr IV .BOLUS ONE Stop: 04/05/20 09:34 Last Admin: 04/05/20 14:56 Dose: Not Given Documented by: Ropivacaine (Naropin 0.2%) Confirm Administered Dose 100 mls @ as directed .ROUTE .STK-MED ONE Stop: 04/05/20 14:25 Misoprostol (Cytotec) 50 mcg VAG ONETIME ONE Stop: 04/05/20 07:31 Last Admin: 04/05/20 08:22 Dose: 50 mcg Documented by: Misoprostol (Cytotec) 50 mcg VAG ONETIME ONE Stop: 04/05/20 11:31 Last Admin: 04/05/20 12:12 Dose: Not Given Documented by: - Uterine Contractions Uterine Monitoring Mode: External [place] Contraction Frequency (min): x2 Contraction Duration (sec): 60-80 Contraction Intensity: Moderate Uterine Resting Tone: Soft - Monitoring Heart Rate (FHR) Variability: Moderate (6-25 bmp) Accelerations: Present, 15x15 Decelerations: None Strip Review: Category I - Vaginal Exam Dilation (cm): 3 Effacement (Percent): 75 Station: -1 Cervical Position: Midposition Sterile Vaginal Exam Performed By: Allegra Clay - Labor Progress (Free Text) Labor Progress: 04/05/2020 Patient progressing nicely. SVE-3/75/-1 Contractions regular FHTs category one Significant other supportive at bedside Plan- Continue to monitor labor Continue to monitor FHTS Epidural when patient requests Pitocin to be started per protocol Will AROM eventually after epidural Plan and anticipate a vaginal delivery
--- NOTE | 2020-04-05 15:33 | PCM.PNLD ---
Labor Progress Note - VS & Meds Vital Signs: Last Vital Signs Temp 36.6 C 04/05/20 11:54 Pulse 101 H 04/05/20 11:54 Resp 18 04/05/20 11:54 BP 113/65 04/05/20 11:54 Pulse Ox 93 L 04/05/20 11:54 Active Medications: Current Medications Acetaminophen (Tylenol) 650 mg PO Q4H PRN PRN Reason: Pain (Mild 1-3) and fever Diphenhydramine HCl (Benadryl) 25 mg IVPUSH Q6H PRN PRN Reason: Itching Diphenhydramine HCl (Benadryl) 50 mg IVPUSH Q6H PRN PRN Reason: Itching Ephedrine Sulfate (Ephedrine Sulfate) 10 mg IVPUSH ASDIRECTED PRN PRN Reason: Hypotension Ropivacaine 200 mg/ Premix 100 mls @ 0 mls/hr EPIDUR ASDIRECTED GÓMEZ Oxytocin/Sodium Chloride (Pitocin In Ns 20 Units/1,000 Ml) 20 unit in 1,000 mls @ 6 mls/hr IV TITRATE GÓMEZ; Protocol Last Titration: 04/05/20 13:00 Dose: 4 munits/min, 12 mls/hr Documented by: Sodium Chloride (Normal Saline) 1,000 mls @ 999 mls/hr IV ASDIRECTED GÓMEZ Last Admin: 04/05/20 14:10 Dose: 999 mls/hr Documented by: Naloxone HCl (Narcan) 0.1 mg IVPUSH ASDIRECTED PRN PRN Reason: Oversedation Ondansetron HCl (Zofran) 4 mg IV Q4H PRN PRN Reason: Nausea/Vomiting Sodium Chloride (Saline Flush) 10 ml FLUSH ASDIRECTED PRN PRN Reason: Keep Vein Open Discontinued Medications Lactated Ringer's (Ringers, Lactated) 1,000 mls @ 999 mls/hr IV .BOLUS ONE Stop: 04/05/20 09:34 Last Admin: 04/05/20 14:56 Dose: Not Given Documented by: Ropivacaine (Naropin 0.2%) Confirm Administered Dose 100 mls @ as directed .ROUTE .STK-MED ONE Stop: 04/05/20 14:25 Misoprostol (Cytotec) 50 mcg VAG ONETIME ONE Stop: 04/05/20 07:31 Last Admin: 04/05/20 08:22 Dose: 50 mcg Documented by: Misoprostol (Cytotec) 50 mcg VAG ONETIME ONE Stop: 04/05/20 11:31 Last Admin: 04/05/20 12:12 Dose: Not Given Documented by: - Uterine Contractions Uterine Monitoring Mode: External [place] Contraction Frequency (min): 2-2.5 Contraction Duration (sec): 60-70 Contraction Intensity: Moderate to Strong Uterine Resting Tone: Soft - Monitoring Heart Rate (FHR) Variability: Moderate (6-25 bmp) Accelerations: Present, 15x15 Decelerations: None Strip Review: Category I - Vaginal Exam Dilation (cm): 4 Effacement (Percent): 80 Station: -1 Cervical Position: Anterior Sterile Vaginal Exam Performed By: Allegra Clay - Labor Progress (Free Text) Labor Progress: 04/05/2020 Patient now comfortable with epidural SVE-4-5/80/-1 AROM education risks and benefits done with patient and patient agrees to procedure AROM done with clear fluid FHTs-category one Plan- Continue to monitor labor Continue to monitor FHTs Continue epidural for pain management Continue pitocin per protocol Plan and anticipate a vaginal delivery
--- NOTE | 2020-04-05 16:04 | ANES ---
DATE OF SERVICE: 04/05/2020 TIME: 14:15. INDICATIONS: I was called to the Labor and Delivery Unit to evaluate Ms. Clayton for a labor epidural. She is in active labor approximately 3 or so centimeter and would like an epidural. Risks and benefits of procedure were explained to the patient. She wished to proceed with labor epidural. TECHNIQUE: She was placed in a sitting position. Her back was prepped x3 with Betadine, 1% lidocaine skin local was used. The epidural was placed at L3-4 using a 17-gauge Tuohy needle in loss of resistance technique. The epidural had very good feel throughout, and the epidural space was easily identified. There was negative CSF, negative blood, and negative paresthesias noted. Therefore, a catheter was threaded to 13 cm at the skin. There was negative CSF, negative blood, and negative paresthesias noted with the catheter. Therefore, a 1.5% lidocaine with epinephrine test dose was given. This test dose was negative. The catheter was then secured with Tegaderm and tape. The patient was placed in a supine position. A 0.2% ropivacaine bolus of 12 mL was given. She had very good relief from the initial bolus. Therefore, 0.2% ropivacaine drip was started at 12 mL/h. She tolerated the epidural procedure very nicely. Her vital signs remained stable throughout the procedure and nurse was with me for the entire procedure. There were no anesthesia complications noted. We are going to continue to monitor her throughout her Labor and delivery. Pipo Connor CRNA /[id number]
--- NOTE | 2020-04-05 19:15 | PCM.PNLD ---
Labor Progress Note - VS & Meds Vital Signs: Last Vital Signs Temp 36.5 C 04/05/20 16:40 Pulse 91 04/05/20 18:30 Resp 18 04/05/20 18:30 BP 121/64 04/05/20 18:30 Pulse Ox 99 04/05/20 18:30 Active Medications: Current Medications Acetaminophen (Tylenol) 650 mg PO Q4H PRN PRN Reason: Pain (Mild 1-3) and fever Diphenhydramine HCl (Benadryl) 25 mg IVPUSH Q6H PRN PRN Reason: Itching Diphenhydramine HCl (Benadryl) 50 mg IVPUSH Q6H PRN PRN Reason: Itching Ephedrine Sulfate (Ephedrine Sulfate) 10 mg IVPUSH ASDIRECTED PRN PRN Reason: Hypotension Ropivacaine 200 mg/ Premix 100 mls @ 0 mls/hr EPIDUR ASDIRECTED GÓMEZ Oxytocin/Sodium Chloride (Pitocin In Ns 20 Units/1,000 Ml) 20 unit in 1,000 mls @ 6 mls/hr IV TITRATE GÓMEZ; Protocol Last Titration: 04/05/20 18:27 Dose: 10 munits/min, 30 mls/hr Documented by: Sodium Chloride (Normal Saline) 1,000 mls @ 999 mls/hr IV ASDIRECTED GÓMEZ Last Admin: 04/05/20 14:10 Dose: 999 mls/hr Documented by: Naloxone HCl (Narcan) 0.1 mg IVPUSH ASDIRECTED PRN PRN Reason: Oversedation Ondansetron HCl (Zofran) 4 mg IV Q4H PRN PRN Reason: Nausea/Vomiting Sodium Chloride (Saline Flush) 10 ml FLUSH ASDIRECTED PRN PRN Reason: Keep Vein Open Discontinued Medications Lactated Ringer's (Ringers, Lactated) 1,000 mls @ 999 mls/hr IV .BOLUS ONE Stop: 04/05/20 09:34 Last Admin: 04/05/20 14:56 Dose: Not Given Documented by: Ropivacaine (Naropin 0.2%) Confirm Administered Dose 100 mls @ as directed .ROUTE .STK-MED ONE Stop: 04/05/20 14:25 Misoprostol (Cytotec) 50 mcg VAG ONETIME ONE Stop: 04/05/20 07:31 Last Admin: 04/05/20 08:22 Dose: 50 mcg Documented by: Misoprostol (Cytotec) 50 mcg VAG ONETIME ONE Stop: 04/05/20 11:31 Last Admin: 04/05/20 12:12 Dose: Not Given Documented by: - Uterine Contractions Uterine Monitoring Mode: External [place] Contraction Frequency (min): 1-3 Contraction Duration (sec): 50-70 Contraction Intensity: Mild Uterine Resting Tone: Soft - Monitoring Monitor Mode: External Ultrasound Heart Rate (FHR) Variability: Moderate (6-25 bmp) Accelerations: Present, 15x15 Decelerations: None Strip Review: Category I - Vaginal Exam Dilation (cm): 7-8 Effacement (Percent): 90 Station: -1 Cervical Position: Anterior Sterile Vaginal Exam Performed By: Allegra Clay - Labor Progress (Free Text) Labor Progress: 04/05/2020 Patient comfortable with epidural and progressing nicely SVE-7-8/85/-1 FHTs category one Plan- Continue to monitor labor Continue to monitor FHTs Continue epidural for pain management Continue pitocin per procotol Plan and anticipate a vaginal delivery
[2020-04-05] MEDS ORDERED: Lactated Ringers 1,000 ML IV SCH (20:30)
[2020-04-05] MEDS ORDERED: Carboprost Tromethamine 250 MCG/1 ML Amp ONE (21:32)
[2020-04-05] MEDS ORDERED: Misoprostol 200 MCG Tab ONE (21:32)
[2020-04-05] MEDS ORDERED: Methylergonovine 0.2 MG/1 ML Amp ONE (21:32)
[2020-04-05] MEDS ORDERED: Methylergonovine 0.2 MG/1 ML Amp IM ONE (22:20)
[2020-04-05] MEDS ORDERED: Misoprostol 200 MCG Tab RECTAL ONE (22:20)
[2020-04-05] MEDS ORDERED: Acetaminophen 325 MG Tab, 50 Tab Bulk Bottle PO PRN (22:58)
[2020-04-05] MEDS ORDERED: Benzocaine 20% Top Spray 56 GM Bottle TOP ONE (22:58)
[2020-04-05] MEDS ORDERED: Witch Hazel Medicated Pads 100/Jar TOP ONE (22:58)
[2020-04-05] MEDS ORDERED: Lanolin 100% Cream 40 GM Tube TOP ONE (22:58)
[2020-04-05] MEDS ORDERED: Ibuprofen 200 MG Tab, 24 Tab Bulk Bottle PO PRN (22:58)
--- NOTE | 2020-04-05 23:25 | PCM.DEL ---
L & D Note - General Info Date of Service: 04/05/20 Mother's Due Date: 04/05/20 - Delivery Note Labor: Spontaneous Delivery Outcome: Livebirth Infant Delivery Method: Spontaneous Vaginal Delivery-Single Infant Delivery Mode: Spontaneous Presentation: Left Occiput Anterior (RADHA) Nuchal Cord: Present, Reduced Anesthesia Type: Epidural Amniotic Fluid Description: Clear Episiotomy Type: None Laceration: 2nd Degree Suture type: Chromic Suture size: 3-0 Placenta: Intact, Spontaneous Cord: 3 Vessels Estimated Blood Loss: 650 Resuscitation Needed: No : Bulb Syringe, Stimulated, Shellman Used Score 1 min: 7 Score 5 min: 8 Second Stage Interventions: Reports: Second Nurse Assessed Progress of Descent, Second Nurse Reviewed Contraction Pattern, Second Nurse Reviewed Heart Tones, Encouragement Given, Pushing Effectively, Pushing, Left Side, Pushing, McRobert's Position, Pushing, Right Side, Pushing, Stirrups/Leg Supports Delivery Comments (Free Text/Narrative):: 04/05/2020 29 yo delivered a viable male in RADHA position over an intact perineum at 2205 on 04/05/2020. Patient had been having prolonged variable decelerations, O2 was applied, IV bolus initiated and decision made to start pushing due to being complete. Pitocin was stopped. Patient pushed effectively on right side and was able to bring baby down, with pushing baby was able to recover heart tones. After pushing effectively began to crown, did not larger head on so did prepare in case shoulder dystocia occurred, Jenny performed, head then came nicely and restitution achieved, times one nuchal cord easily reduced and then shoulder and body were delivered in next push. Infant was then placed on prewarmed blanket on mothers abdomen, was stimulated but since slow to respond cord was double clamped and infant was brought to warmer to be assessed. Infant then began to pink in color and cry vigorously. APGARS-7/8, weight-8lbs 3oz, length-20.5 inches. Infant then returned to mother's chest and covered with warm blanket. Placenta then came intact, three vessel cord, large amount of bleeding was noted with clots before delivery of placenta and shortly after, uterine atony was noted. Massage was done, Pitocin was wide open, methergine given initially. Then vagina inspected, continue to trickle for a total EBL of 650ml so did also do cytotec rectally 800mcg. Bleeding then slowed and became moderate normal at this time and fundus was firm. Second degree perineal laceration repaired in usual fashion. No laceration noted of vagina, labia, cervix, or rectum. Infant now skin to skin with mother of infant and both stable in labor and delivery room Stages of labor- [id number] - General Info Date of Service: 04/05/20 Functional Status: Reports: Pain Controlled - Review of Systems General: Reports: No Symptoms HEENT: Reports: No Symptoms Pulmonary: Reports: No Symptoms Cardiovascular: Reports: No Symptoms Gastrointestinal: Reports: No Symptoms Genitourinary: Reports: No Symptoms Musculoskeletal: Reports: No Symptoms Skin: Reports: No Symptoms Neurological: Reports: No Symptoms Psychiatric: Reports: No Symptoms - Patient Data Vitals - Most Recent: Last Vital Signs Temp 36.7 C 04/05/20 19:00 Pulse 113 H 04/05/20 19:00 Resp 16 04/05/20 19:00 BP 104/66 04/05/20 19:00 Pulse Ox 98 04/05/20 19:00 Weight - Most Recent: 78.925 kg I&O - Last 24 Hours: Intake & Output 04/05/20 04/05/20 04/06/20 14:59 22:59 06:59 Output Total 900 Balance -900 Lab Results Last 24 Hours: Laboratory Results - last 24 hr 04/05/20 04/05/20 04/05/20 Range/Units 07:00 07:33 07:33 WBC 10.2 (4.5-11.0) K/uL RBC 4.29 (3.30-5.50) M/uL Hgb 12.7 D (12.0-15.0) g/dL Hct 38.2 (36.0-48.0) % MCV 89 (80-98) fL MCH 30 (27-31) pg MCHC 33 (32-36) % Plt Count 199 (150-400) K/uL Neut % (Auto) 74 H (36-66) % Lymph % (Auto) 19 L (24-44) % [place] % (Auto) 7 H (2-6) % Eos % (Auto) 0 L (2-4) % Baso % (Auto) 0 (0-1) % Urine Color Yellow (YELLOW) Urine Appearance Clear (CLEAR) Urine pH 7.5 (5.0-8.0) Ur Specific [place] 1.025 (1.008-1.030) Urine Protein Negative (NEGATIVE) mg/dL Urine Glucose (UA) Negative (NEGATIVE) mg/dL Urine Ketones Negative (NEGATIVE) mg/dL Urine Occult Blood Negative (NEGATIVE) Urine Nitrite Negative (NEGATIVE) Urine Bilirubin Negative (NEGATIVE) Urine Urobilinogen 0.2 (0.2-1.0) EU/dL Ur Leukocyte Esterase Trace H (NEGATIVE) Urine RBC 0-5 (0-5) Urine WBC 0-5 (0-5) Ur Epithelial Cells Moderate Amorphous Sediment Many Urine Bacteria Moderate Urine Mucus Not seen Urine Opiates Screen (NEGATIVE) Ur Oxycodone Screen (NEGATIVE) Urine Methadone Screen (NEGATIVE) Ur Propoxyphene Screen (NEGATIVE) Ur Barbiturates Screen (NEGATIVE) Ur Tricyclics Screen (NEGATIVE) Ur Phencyclidine Scrn (NEGATIVE) Ur Amphetamine Screen (NEGATIVE) U Methamphetamines Scrn (NEGATIVE) Urine MDMA Screen (NEGATIVE) U Benzodiazepines Scrn (NEGATIVE) U Cocaine Metab Screen (NEGATIVE) U Marijuana (THC) Screen (NEGATIVE) SARS CoV-2 RNA Rapid CATHERINE Negative 04/05/20 Range/Units 07:33 WBC (4.5-11.0) K/uL RBC (3.30-5.50) M/uL Hgb (12.0-15.0) g/dL Hct (36.0-48.0) % MCV (80-98) fL MCH (27-31) pg MCHC (32-36) % Plt Count (150-400) K/uL Neut % (Auto) (36-66) % Lymph % (Auto) (24-44) % [place] % (Auto) (2-6) % Eos % (Auto) (2-4) % Baso % (Auto) (0-1) % Urine Color (YELLOW) Urine Appearance (CLEAR) Urine pH (5.0-8.0) Ur Specific [place] (1.008-1.030) Urine Protein (NEGATIVE) mg/dL Urine Glucose (UA) (NEGATIVE) mg/dL Urine Ketones (NEGATIVE) mg/dL Urine Occult Blood (NEGATIVE) Urine Nitrite (NEGATIVE) Urine Bilirubin (NEGATIVE) Urine Urobilinogen (0.2-1.0) EU/dL Ur Leukocyte Esterase (NEGATIVE) Urine RBC (0-5) Urine WBC (0-5) Ur Epithelial Cells Amorphous Sediment Urine Bacteria Urine Mucus Urine Opiates Screen Negative (NEGATIVE) Ur Oxycodone Screen Negative (NEGATIVE) Urine Methadone Screen Negative (NEGATIVE) Ur Propoxyphene Screen Negative (NEGATIVE) Ur Barbiturates Screen Negative (NEGATIVE) Ur Tricyclics Screen Negative (NEGATIVE) Ur Phencyclidine Scrn Negative (NEGATIVE) Ur Amphetamine Screen Negative (NEGATIVE) U Methamphetamines Scrn Negative (NEGATIVE) Urine MDMA Screen Negative (NEGATIVE) U Benzodiazepines Scrn Negative (NEGATIVE) U Cocaine Metab Screen Negative (NEGATIVE) U Marijuana (THC) Screen Negative (NEGATIVE) SARS CoV-2 RNA Rapid CATHERINE Med Orders - Current: Current Medications Acetaminophen (Tylenol) 650 mg PO Q4H PRN PRN Reason: Pain (Mild 1-3) and fever Acetaminophen (Tylenol Bulk Bottle) 0 mg PO Q4H PRN PRN Reason: Pain Diphenhydramine HCl (Benadryl) 25 mg IVPUSH Q6H PRN PRN Reason: Itching Diphenhydramine HCl (Benadryl) 50 mg IVPUSH Q6H PRN PRN Reason: Itching Docusate Sodium (Colace) 100 mg PO BID PRN PRN Reason: Constipation Ephedrine Sulfate (Ephedrine Sulfate) 10 mg IVPUSH ASDIRECTED PRN PRN Reason: Hypotension Ropivacaine 200 mg/ Premix 100 mls @ 0 mls/hr EPIDUR ASDIRECTED GÓMEZ Last Admin: 04/05/20 20:14 Dose: 12 mls/hr Documented by: Oxytocin/Sodium Chloride (Pitocin In Ns 20 Units/1,000 Ml) 20 unit in 1,000 mls @ 6 mls/hr IV TITRATE GÓMEZ; Protocol Last Titration: 04/05/20 20:14 Dose: 13 munits/min, 39 mls/hr Documented by: Lactated Ringer's (Ringers, Lactated) 1,000 mls @ 75 mls/hr IV ASDIRECTED GÓMEZ Ibuprofen (Motrin Bulk Bottle) 600 mg PO Q6H PRN PRN Reason: Pain Naloxone HCl (Narcan) 0.1 mg IVPUSH ASDIRECTED PRN PRN Reason: Oversedation Ondansetron HCl (Zofran) 4 mg IV Q4H PRN PRN Reason: Nausea/Vomiting Sodium Chloride (Saline Flush) 10 ml FLUSH ASDIRECTED PRN PRN Reason: Keep Vein Open Discontinued Medications Benzocaine (Xcuc-E-Sbvmzps 20% Pipestem) 0 gm TOP ONETIME ONE Stop: 04/05/20 22:59 Carboprost Tromethamine (Hemabate Ds) Confirm Administered Dose 250 mcg .ROUTE .STK-MED ONE Stop: 04/05/20 21:33 Emollient Ointment (Lansinoh Hpa) 1 gm TOP ONETIME ONE Stop: 04/05/20 22:59 Lactated Ringer's (Ringers, Lactated) 1,000 mls @ 999 mls/hr IV .BOLUS ONE Stop: 04/05/20 09:34 Last Admin: 04/05/20 14:56 Dose: Not Given Documented by: Ropivacaine (Naropin 0.2%) Confirm Administered Dose 100 mls @ as directed .ROUTE .STK-MED ONE Stop: 04/05/20 14:25 Sodium Chloride (Normal Saline) 1,000 mls @ 999 mls/hr IV ASDIRECTED GÓMEZ Last Admin: 04/05/20 14:10 Dose: 999 mls/hr Documented by: Methylergonovine Maleate (Methergine) Confirm Administered Dose 0.2 mg .ROUTE .STK-MED ONE Stop: 04/05/20 21:33 Last Admin: 04/05/20 22:24 Dose: 0.2 mg Documented by: Misoprostol (Cytotec) 50 mcg VAG ONETIME ONE Stop: 04/05/20 07:31 Last Admin: 04/05/20 08:22 Dose: 50 mcg Documented by: Misoprostol (Cytotec) 50 mcg VAG ONETIME ONE Stop: 04/05/20 11:31 Last Admin: 04/05/20 12:12 Dose: Not Given Documented by: Misoprostol (Cytotec) Confirm Administered Dose 800 mcg .ROUTE .STK-MED ONE Stop: 04/05/20 21:33 Last Admin: 04/05/20 22:26 Dose: 800 mcg Documented by: Kael Palmer) 1 pad TOP ONETIME ONE Stop: 04/05/20 22:59 - Exam General: Alert, Oriented, Cooperative HEENT: Pupils Equal, Pupils Reactive, EOMI, Mucous Membr. Moist/[place] Neck: Supple Lungs: Clear to Auscultation, Normal Respiratory Effort Cardiovascular: Regular Rate, Regular Rhythm GI/Abdominal Exam: Normal Bowel Sounds, Soft, Non-Tender, No Organomegaly, No Distention, No Abnormal Bruit, No Mass, Pelvis Stable (Female) Exam: Normal External Exam, Normal Speculum Exam, Normal Bimanual Exam, Enlarged Uterus, Vaginal Bleeding Back Exam: Normal Inspection, Full Range of Motion Extremities: Normal Inspection, Normal Range of Motion, Non-Tender, No Pedal Edema, Normal Capillary Refill Skin: Warm, Dry, Intact Neurological: No New Focal Deficit Psy/Mental Status: Alert, Normal Affect, Normal Mood - Problem List & Annotations (1) SNOMED Code(s): 96816102 Code(s): Z34.90 - ENCNTR FOR SUPRVSN OF NORMAL , UNSP, UNSP TRIMESTER Status: Acute Current Visit: Yes Qualifiers: Weeks of gestation: 39 weeks Qualified Code(s): Z3A.39 - 39 weeks gestation of (2) History of macrosomia in in prior , currently SNOMED Code(s): 54474806336216, 61854935991182 Code(s): O09.299 - SUPRVSN OF PREG W POOR REPRODCTV OR OBSTET HISTORY, UNSP TRI Status: Acute Priority: High Current Visit: Yes (3) History of shoulder dystocia in prior , currently SNOMED Code(s): 972847284, 225456850 Code(s): O09.299 - SUPRVSN OF PREG W POOR REPRODCTV OR OBSTET HISTORY, UNSP TRI Status: Acute Priority: High Current Visit: Yes (4) History of hemorrhage, currently SNOMED Code(s): 799411663, 680211339 Code(s): O09.299 - SUPRVSN OF PREG W POOR REPRODCTV OR OBSTET HISTORY, UNSP TRI Status: Acute Priority: High Current Visit: Yes (5) History of maternal third degree perineal laceration, currently SNOMED Code(s): 806155413, 805197646, 026313074 Code(s): O09.299 - SUPRVSN OF PREG W POOR REPRODCTV OR OBSTET HISTORY, UNSP TRI Status: Acute Priority: High Current Visit: Yes (6) Vaginal delivery SNOMED Code(s): 986714368 Code(s): O80 - ENCOUNTER FOR FULL-TERM UNCOMPLICATED DELIVERY Status: Acute Current Visit: Yes (7) Perineal laceration SNOMED Code(s): 068395082 Code(s): TGZ6258 - Status: Acute Current Visit: Yes (8) () SNOMED Code(s): 562064489 Code(s): Z78.9 - OTHER SPECIFIED HEALTH STATUS Status: Acute Current Visit: Yes (9) hemorrhage SNOMED Code(s): 63589377 Code(s): O72.1 - OTHER IMMEDIATE HEMORRHAGE Status: Acute Current Visit: Yes - Problem List Review Problem List Initiated/Reviewed/Updated: Yes - My Orders Last 24 Hours: My Active Orders 04/05/20 Breakfast Regular Diet [DIET] 04/05/20 08:34 Patient Status [ADT] Routine Ambulate [RC] PER UNIT ROUTINE Communication Order [RC] ASDIRECTED Communication Order [RC] ASDIRECTED Communication Order [RC] ROUTINE Communication Order [RC] ROUTINE Communication Order [RC] ROUTINE Heart Tones [RC] PER UNIT ROUTINE Non Stress Test [RC] Click to Edit Local Anesthetic Infusion Pump [RC] ASDIRECTED Notify Provider Vital Signs [RC] PRN Notify Provider [RC] PRN Oxygen Therapy [RC] ASDIRECTED PCEA Epidural [RC] ASDIRECTED Peripheral IV Care [RC] . DIRECTED Pulse Oximetry [RC] ASDIRECTED Up ad Jim [RC] ASDIRECTED Up to Chair [RC] QID Urinary Catheter Assessment [RC] ASDIRECTED Vital Signs [RC] PER UNIT ROUTINE Acetaminophen [TylenoL] 650 mg PO Q4H PRN Naloxone [Narcan] 0.1 mg IVPUSH ASDIRECTED PRN Ondansetron [Zofran] 4 mg IV Q4H PRN Sodium Chloride 0.9% [Saline Flush] 10 ml FLUSH ASDIRECTED PRN diphenhydrAMINE [Benadryl] 25 mg IVPUSH Q6H PRN diphenhydrAMINE [Benadryl] 50 mg IVPUSH Q6H PRN ePHEDrine [ePHEDrine sulfate] 10 mg IVPUSH ASDIRECTED PRN DVT/VTE Prophylaxis Reflex [OM.PC] Routine Epidural Catheter Management [OM.PC] Routine Epidural Catheter Management [OM.PC] Urgent Peripheral IV Insertion Pediatric [OM.PC] Routine Saline Lock Insert [OM.PC] Routine Resuscitation Status Routine 04/05/20 08:39 VTE/DVT Education [RC] Click to Edit 04/05/20 08:45 Insert Urinary Catheter [OM.PC] ASDIRECTED Ropivacaine [Naropin 0.2%] 200 mg Premix Bag 1 bag EPIDUR ASDIRECTED 04/05/20 10:00 Oxytocin/Normal Saline [Pitocin in NS 20 Units/1,000 ML] 20 unit in 1,000 ml IV TITRATE 04/05/20 20:30 Lactated Ringers [Ringers, Lactated] 1,000 ml IV ASDIRECTED 04/05/20 22:58 Acetaminophen [Tylenol Bulk Bottle] See Dose Instructions PO Q4H PRN Docusate Sodium [Colace] 100 mg PO BID PRN Ibuprofen [Motrin Bulk Bottle] 600 mg PO Q6H PRN Assess Lochia [WOMSER] Per Unit Routine Assess Uterine Involution [WOMSER] Per Unit Routine 04/05/20 22:59 Patient Status [ADT] Routine Vital Signs [RC] PFP 04/05/20 23:11 Sitz Bath [OM.PC] Per Unit Routine 04/05/20 23:12 Ice Therapy [OM.PC] Per Unit Routine Perineal Care [OM.PC] Per Unit Routine 04/06/20 06:00 CBC WITH AUTO DIFF [HEME] Routine - Assessment Assessment:: 04/05/2020 29 yo delivered a male hemorrhage Perineal laceration repaired - Plan Plan:: 04/05/2020 29 yo here at 39 0/7 weeks gestation for a medical induction of labor due to history of macrosomic infant, history of PPH, history of moderate shoulder dystocia, history of large 3rd laceration with vacuum assisted delivery. Patient was explained risks and benefits of induction and patient desires and verbalizes understanding. SVE-1-2/60/-2 FHTs category one Cytotec 50mcg placed vaginally Labs-A positive, Hep B neg, Hep C neg, HIV neg, RPR nonreactive, Rubella Immune, GBS negative, COVID negative Plan- Continue to monitor for labor Continue to monitor FHTS Patient may eat regular diet Patient may be up ad jim Patient may get in tub or shower Plan and anticipate a vaginal delivery 04/05/2020 Routine cares Encourage and support Encourage and support good perineal care CBC in am Plan discharge in 24-48 hours
[2020-04-06] MEDS: Docusate Sodium 100 MG Cap PO PRN ×3 (01:13→22:59)
[2020-04-06] MEDS ORDERED: Benzocaine 20% Top Spray 56 GM Bottle TOP PRN (07:14)
[2020-04-06] MEDS ORDERED: Lanolin 100% Cream 40 GM Tube TOP PRN (07:14)
[2020-04-06] MEDS ORDERED: Witch Hazel Medicated Pads 100/Jar TOP PRN (07:15)
--- NOTE | 2020-04-06 08:45 | PCM.PNPP ---
- General Info Date of Service: 04/06/20 Functional Status: Reports: Pain Controlled - Review of Systems General: Reports: No Symptoms HEENT: Reports: No Symptoms Pulmonary: Reports: No Symptoms Cardiovascular: Reports: No Symptoms Gastrointestinal: Reports: No Symptoms Genitourinary: Reports: No Symptoms, Other (some perineal burning, voiding well) Musculoskeletal: Reports: No Symptoms Skin: Reports: No Symptoms Neurological: Reports: No Symptoms Psychiatric: Reports: No Symptoms - General Info Date of Service: 04/06/20 - Patient Data Vital Signs - Most Recent: Last Vital Signs Temp 37.5 C 04/06/20 03:00 Pulse 81 04/06/20 03:00 Resp 16 04/06/20 03:00 BP 126/61 04/06/20 03:00 Pulse Ox 99 04/06/20 03:00 Weight - Most Recent: 78.925 kg I&O - Last 24 Hours: Intake & Output 04/05/20 04/06/20 04/06/20 22:59 06:59 14:59 Intake Total 3393 Output Total 900 Balance -900 3393 Lab Results - Last 24 Hours: Laboratory Results - last 24 hr 04/06/20 Range/Units 05:40 WBC 15.0 H (4.5-11.0) K/uL RBC 4.11 (3.30-5.50) M/uL Hgb 12.0 (12.0-15.0) g/dL Hct 36.5 (36.0-48.0) % MCV 89 (80-98) fL MCH 29 (27-31) pg MCHC 33 (32-36) % Plt Count 193 (150-400) K/uL Neut % (Auto) 82 H (36-66) % Lymph % (Auto) 11 L (24-44) % [place] % (Auto) 7 H (2-6) % Eos % (Auto) 0 L (2-4) % Baso % (Auto) 0 (0-1) % Med Orders - Current: Current Medications Acetaminophen (Tylenol) 650 mg PO Q4H PRN PRN Reason: Pain (Mild 1-3) and fever Acetaminophen (Tylenol Bulk Bottle) 0 mg PO Q4H PRN PRN Reason: Pain Last Admin: 04/06/20 00:57 Dose: 1 bot Documented by: Benzocaine (Qnip-F-Vieivid 20% [place]) 0 gm TOP Q4H PRN PRN Reason: perineal pain Diphenhydramine HCl (Benadryl) 25 mg IVPUSH Q6H PRN PRN Reason: Itching Diphenhydramine HCl (Benadryl) 50 mg IVPUSH Q6H PRN PRN Reason: Itching Docusate Sodium (Colace) 100 mg PO BID PRN PRN Reason: Constipation Last Admin: 04/06/20 01:13 Dose: 100 mg Documented by: Emollient Ointment (Lansinoh Hpa) 1 gm TOP ASDIRECTED PRN PRN Reason: SORE NIPPLES Ephedrine Sulfate (Ephedrine Sulfate) 10 mg IVPUSH ASDIRECTED PRN PRN Reason: Hypotension Ibuprofen (Motrin Bulk Bottle) 600 mg PO Q6H PRN PRN Reason: Pain Last Admin: 04/05/20 23:32 Dose: 1 bottle Documented by: Naloxone HCl (Narcan) 0.1 mg IVPUSH ASDIRECTED PRN PRN Reason: Oversedation Ondansetron HCl (Zofran) 4 mg IV Q4H PRN PRN Reason: Nausea/Vomiting Sodium Chloride (Saline Flush) 10 ml FLUSH ASDIRECTED PRN PRN Reason: Keep Vein Open Witch Rosamaria (Tucks) 1 pad TOP ASDIRECTED PRN PRN Reason: to perineum Discontinued Medications Benzocaine (Feno-M-Idyvbhu 20% [place]) 0 gm TOP ONETIME ONE Stop: 04/05/20 22:59 Last Admin: 04/05/20 23:26 Dose: Not Given Documented by: Carboprost Tromethamine (Hemabate Ds) Confirm Administered Dose 250 mcg .ROUTE .STK-MED ONE Stop: 04/05/20 21:33 Last Admin: 04/05/20 23:25 Dose: Not Given Documented by: Emollient Ointment (Lansinoh Hpa) 1 gm TOP ONETIME ONE Stop: 04/05/20 22:59 Last Admin: 04/05/20 23:31 Dose: 1 tube Documented by: Ropivacaine 200 mg/ Premix 100 mls @ 0 mls/hr EPIDUR ASDIRECTED GÓMEZ Last Admin: 04/05/20 20:14 Dose: 12 mls/hr Documented by: Lactated Ringer's (Ringers, Lactated) 1,000 mls @ 999 mls/hr IV .BOLUS ONE Stop: 04/05/20 09:34 Last Admin: 04/05/20 14:56 Dose: Not Given Documented by: Oxytocin/Sodium Chloride (Pitocin In Ns 20 Units/1,000 Ml) 20 unit in 1,000 mls @ 6 mls/hr IV TITRATE GÓMEZ; Protocol Last Titration: 04/05/20 22:10 Dose: 333 munits/min, 999 mls/hr Documented by: Ropivacaine (Naropin 0.2%) Confirm Administered Dose 100 mls @ as directed .ROUTE .STK-MED ONE Stop: 04/05/20 14:25 Sodium Chloride (Normal Saline) 1,000 mls @ 999 mls/hr IV ASDIRECTED GÓMEZ Last Admin: 04/05/20 14:10 Dose: 999 mls/hr Documented by: Lactated Ringer's (Ringers, Lactated) 1,000 mls @ 75 mls/hr IV ASDIRECTED GÓMEZ Methylergonovine Maleate (Methergine) Confirm Administered Dose 0.2 mg .ROUTE .STK-MED ONE Stop: 04/05/20 21:33 Last Admin: 04/05/20 22:24 Dose: 0.2 mg Documented by: Methylergonovine Maleate (Methergine) 0.2 mg IM ONETIME ONE Stop: 04/05/20 22:21 Last Admin: 04/06/20 02:04 Dose: Not Given Documented by: Misoprostol (Cytotec) 50 mcg VAG ONETIME ONE Stop: 04/05/20 07:31 Last Admin: 04/05/20 08:22 Dose: 50 mcg Documented by: Misoprostol (Cytotec) 50 mcg VAG ONETIME ONE Stop: 04/05/20 11:31 Last Admin: 04/05/20 12:12 Dose: Not Given Documented by: Misoprostol (Cytotec) Confirm Administered Dose 800 mcg .ROUTE .STK-MED ONE Stop: 04/05/20 21:33 Last Admin: 04/05/20 22:26 Dose: 800 mcg Documented by: Misoprostol (Cytotec) 800 mcg RECTAL ONETIME ONE Stop: 04/05/20 22:21 Last Admin: 04/06/20 02:04 Dose: Not Given Documented [facility]: [facility] 1 pad TOP ONETIME ONE Stop: 04/05/20 22:59 Last Admin: 04/05/20 23:31 Dose: 1 pack Documented by: - Interaction Disposition, : in Room with Family Infant Interaction: Holding Infant Feeding: Attempted ; Nursed Fair/Poor Support Person: Significant Other - Recovery Exam Fundal Tone: Firm Fundal Level: 1 Fingerbreadths Below Umbilicus Fundal Placement: Midline Lochia Amount: Moderate Lochia Color: Rubra/Red Perineum Description: Edematous, Hemorrhoids Episiotomy/Laceration: Approximated Bladder Status: Voiding - Exam General: Alert, Oriented HEENT: Pupils Equal, Pupils Reactive, Mucous Membr. Moist/[place] Neck: Supple Lungs: Clear to Auscultation, Normal Respiratory Effort Cardiovascular: Regular Rate, Regular Rhythm GI/Abdominal Exam: Normal Bowel Sounds, Soft, No Mass, Pelvis Stable Extremities: Normal Inspection, Normal Range of Motion, Non-Tender, No Pedal Edema, Normal Capillary Refill Skin: Warm, Dry, Intact Neurological: No New Focal Deficit Psy/Mental Status: Alert, Normal Affect, Normal Mood - Problem List & Annotations (1) Vaginal delivery SNOMED Code(s): 875182207 Code(s): O80 - ENCOUNTER FOR FULL-TERM UNCOMPLICATED DELIVERY Status: Acute Current Visit: Yes (2) (infant) SNOMED Code(s): 205743468 Code(s): Z78.9 - OTHER SPECIFIED HEALTH STATUS Status: Acute Current Visit: Yes (3) History of macrosomia in in prior , currently SNOMED Code(s): 37893500400347, 04488367012560 Code(s): O09.299 - SUPRVSN OF PREG W POOR REPRODCTV OR OBSTET HISTORY, UNSP TRI Status: Acute Priority: High Current Visit: Yes (4) History of maternal third degree perineal laceration, currently SNOMED Code(s): 618311356, 942097556, 437836136 Code(s): O09.299 - SUPRVSN OF PREG W POOR REPRODCTV OR OBSTET HISTORY, UNSP TRI Status: Acute Priority: High Current Visit: Yes (5) History of hemorrhage, currently SNOMED Code(s): 893893569, 951774243 Code(s): O09.299 - SUPRVSN OF PREG W POOR REPRODCTV OR OBSTET HISTORY, UNSP TRI Status: Acute Priority: High Current Visit: Yes (6) History of shoulder dystocia in prior , currently SNOMED Code(s): 314849188, 802779979 Code(s): O09.299 - SUPRVSN OF PREG W POOR REPRODCTV OR OBSTET HISTORY, UNSP TRI Status: Acute Priority: High Current Visit: Yes (7) Perineal laceration SNOMED Code(s): 709795997 Code(s): RKP4413 - Status: Acute Current Visit: Yes - Problem List Review Problem List Initiated/Reviewed/Updated: Yes - Assessment Assessment:: 04/05/2020 29 yo delivered a male infant hemorrhage Perineal laceration repaired 04/06/20 PP period uncomplicated so far AVSS Hgb went from 12.7 to 12.0 Pain controlled fair to poor - Plan Plan:: 04/05/2020 29 yo here at 39 0/7 weeks gestation for a medical induction of labor due to history of macrosomic , history of PPH, history of moderate shoulder dystocia, history of large 3rd laceration with vacuum assisted delivery. Patient was explained risks and benefits of induction and patient desires and verbalizes understanding. SVE-1-/-2 FHTs category one Cytotec 50mcg placed vaginally Labs-A positive, Hep B neg, Hep C neg, HIV neg, RPR nonreactive, Rubella Immune, GBS negative, COVID negative Plan- Continue to monitor for labor Continue to monitor FHTS Patient may eat regular diet Patient may be up ad jim Patient may get in tub or shower Plan and anticipate a vaginal delivery 04/05/2020 Routine cares Encourage and support Encourage and support good perineal care CBC in am Plan discharge in 24-48 hours 04/06/20 Routine cares Perineal care support Anticipate discharge home tomorrow
[2020-04-07] MEDS: Docusate Sodium 100 MG Cap PO PRN (08:28)
--- NOTE | 2020-04-07 09:48 | PCM.PNPP ---
- General Info Date of Service: 04/07/20 Functional Status: Reports: Pain Controlled - Review of Systems General: Reports: No Symptoms HEENT: Reports: No Symptoms Pulmonary: Reports: No Symptoms Cardiovascular: Reports: No Symptoms Gastrointestinal: Reports: No Symptoms Genitourinary: Reports: No Symptoms Musculoskeletal: Reports: No Symptoms Skin: Reports: No Symptoms Neurological: Reports: No Symptoms Psychiatric: Reports: No Symptoms - General Info Date of Service: 04/07/20 - Patient Data Vital Signs - Most Recent: Last Vital Signs Temp 36.6 C 04/07/20 07:23 Pulse 64 04/07/20 07:23 Resp 16 04/07/20 07:23 BP 107/65 04/07/20 07:23 Pulse Ox 100 04/07/20 07:23 Weight - Most Recent: 78.925 kg I&O - Last 24 Hours: Intake & Output 04/06/20 04/07/20 04/07/20 22:59 06:59 14:59 Intake Total 1000 Balance 1000 Med Orders - Current: Current Medications Acetaminophen (Tylenol) 650 mg PO Q4H PRN PRN Reason: Pain (Mild 1-3) and fever Acetaminophen (Tylenol Bulk Bottle) 0 mg PO Q4H PRN PRN Reason: Pain Last Admin: 04/06/20 00:57 Dose: 1 bot Documented by: Benzocaine (Vtql-N-Qoeatbr 20% [place]) 0 gm TOP Q4H PRN PRN Reason: perineal pain Diphenhydramine HCl (Benadryl) 25 mg IVPUSH Q6H PRN PRN Reason: Itching Diphenhydramine HCl (Benadryl) 50 mg IVPUSH Q6H PRN PRN Reason: Itching Docusate Sodium (Colace) 100 mg PO BID PRN PRN Reason: Constipation Last Admin: 04/07/20 08:28 Dose: 100 mg Documented by: Emollient Ointment (Lansinoh Hpa) 1 gm TOP ASDIRECTED PRN PRN Reason: SORE NIPPLES Ephedrine Sulfate (Ephedrine Sulfate) 10 mg IVPUSH ASDIRECTED PRN PRN Reason: Hypotension Ibuprofen (Motrin Bulk Bottle) 600 mg PO Q6H PRN PRN Reason: Pain Last Admin: 04/05/20 23:32 Dose: 1 bottle Documented by: Naloxone HCl (Narcan) 0.1 mg IVPUSH ASDIRECTED PRN PRN Reason: Oversedation Ondansetron HCl (Zofran) 4 mg IV Q4H PRN PRN Reason: Nausea/Vomiting Sodium Chloride (Saline Flush) 10 ml FLUSH ASDIRECTED PRN PRN Reason: Keep Vein Open Kael Blank (Tucks) 1 pad TOP ASDIRECTED PRN PRN Reason: to perineum Discontinued Medications Benzocaine (Ivtd-O-Gjstvdm 20% [place]) 0 gm TOP ONETIME ONE Stop: 04/05/20 22:59 Last Admin: 04/05/20 23:26 Dose: Not Given Documented by: Carboprost Tromethamine (Hemabate Ds) Confirm Administered Dose 250 mcg .ROUTE .STK-MED ONE Stop: 04/05/20 21:33 Last Admin: 04/05/20 23:25 Dose: Not Given Documented by: Emollient Ointment (Lansinoh Hpa) 1 gm TOP ONETIME ONE Stop: 04/05/20 22:59 Last Admin: 04/05/20 23:31 Dose: 1 tube Documented by: Ropivacaine 200 mg/ Premix 100 mls @ 0 mls/hr EPIDUR ASDIRECTED GÓMEZ Last Admin: 04/05/20 20:14 Dose: 12 mls/hr Documented by: Lactated Ringer's (Ringers, Lactated) 1,000 mls @ 999 mls/hr IV .BOLUS ONE Stop: 04/05/20 09:34 Last Admin: 04/05/20 14:56 Dose: Not Given Documented by: Oxytocin/Sodium Chloride (Pitocin In Ns 20 Units/1,000 Ml) 20 unit in 1,000 mls @ 6 mls/hr IV TITRATE [facility]; Protocol Last Titration: 04/05/20 22:10 Dose: 333 munits/min, 999 mls/hr Documented by: Ropivacaine (Naropin 0.2%) Confirm Administered Dose 100 mls @ as directed .ROUTE .STK-MED ONE Stop: 04/05/20 14:25 Sodium Chloride (Normal Saline) 1,000 mls @ 999 mls/hr IV ASDIRECTED [facility] Last Admin: 04/05/20 14:10 Dose: 999 mls/hr Documented by: Lactated Ringer's (Ringers, Lactated) 1,000 mls @ 75 mls/hr IV ASDIRECTED GÓMEZ Oxytocin/Sodium Chloride (Pitocin In Ns 20 Units/1,000 Ml) 20 unit in 1,000 mls @ 999 mls/hr IV BOLUS GÓMEZ; Protocol Stop: 04/05/20 23:30 Last Admin: 04/05/20 23:00 Dose: 999 mls/hr, 999 mls/hr Documented by: Methylergonovine Maleate (Methergine) Confirm Administered Dose 0.2 mg .ROUTE .STK-MED ONE Stop: 04/05/20 21:33 Last Admin: 04/05/20 22:24 Dose: 0.2 mg Documented by: Methylergonovine Maleate (Methergine) 0.2 mg IM ONETIME ONE Stop: 04/05/20 22:21 Last Admin: 04/06/20 02:04 Dose: Not Given Documented by: Misoprostol (Cytotec) 50 mcg VAG ONETIME ONE Stop: 04/05/20 07:31 Last Admin: 04/05/20 08:22 Dose: 50 mcg Documented by: Misoprostol (Cytotec) 50 mcg VAG ONETIME ONE Stop: 04/05/20 11:31 Last Admin: 04/05/20 12:12 Dose: Not Given Documented by: Misoprostol (Cytotec) Confirm Administered Dose 800 mcg .ROUTE .STK-MED ONE Stop: 04/05/20 21:33 Last Admin: 04/05/20 22:26 Dose: 800 mcg Documented by: Misoprostol (Cytotec) 800 mcg RECTAL ONETIME ONE Stop: 04/05/20 22:21 Last Admin: 04/06/20 02:04 Dose: Not Given [facility]ed [facility]: [facility] TOP ONETIME ONE Stop: 04/05/20 22:59 Last Admin: 04/05/20 23:31 Dose: 1 pack Documented by: - Infant Interaction Disposition, : [place] in Room with Family Infant Interaction: Holding Feeding: Breastfed ; Nursed Well Support Person: Significant Other - Recovery Exam Fundal Tone: Firm Fundal Level: 1 Fingerbreadths Below Umbilicus Fundal Placement: Midline Lochia Amount: Small Lochia Color: Rubra/Red Perineum Description: Edematous, Hemorrhoids Episiotomy/Laceration: Approximated Bladder Status: Voiding Urinary Elimination: Voided - Exam General: Alert, Oriented HEENT: Pupils Equal, Pupils Reactive, Mucous Membr. Moist/[place] Neck: Supple Lungs: Clear to Auscultation, Normal Respiratory Effort Cardiovascular: Regular Rate, Regular Rhythm GI/Abdominal Exam: Normal Bowel Sounds, Soft, Non-Tender, No Organomegaly, No Distention Extremities: Normal Inspection, Normal Range of Motion, Non-Tender, No Pedal Edema, Normal Capillary Refill Skin: Warm, Dry, Intact Neurological: No New Focal Deficit Psy/Mental Status: Alert, Normal Affect, Normal Mood - Problem List & Annotations (1) Vaginal delivery SNOMED Code(s): 152485161 Code(s): O80 - ENCOUNTER FOR FULL-TERM UNCOMPLICATED DELIVERY Status: Acute Current Visit: Yes (2) (infant) SNOMED Code(s): 371135662 Code(s): Z78.9 - OTHER SPECIFIED HEALTH STATUS Status: Acute Current Visit: Yes (3) History of macrosomia in in prior , currently SNOMED Code(s): 72329031112590, 26259251586880 Code(s): O09.299 - SUPRVSN OF PREG W POOR REPRODCTV OR OBSTET HISTORY, UNSP TRI Status: Acute Priority: High Current Visit: Yes (4) History of maternal third degree perineal laceration, currently SNOMED Code(s): 169509676, 247373348, 397671314 Code(s): O09.299 - SUPRVSN OF PREG W POOR REPRODCTV OR OBSTET HISTORY, UNSP TRI Status: Acute Priority: High Current Visit: Yes (5) History of hemorrhage, currently SNOMED Code(s): 248738074, 502221611 Code(s): O09.299 - SUPRVSN OF PREG W POOR REPRODCTV OR OBSTET HISTORY, UNSP TRI Status: Acute Priority: High Current Visit: Yes (6) History of shoulder dystocia in prior , currently SNOMED Code(s): 492894085, 792744555 Code(s): O09.299 - SUPRVSN OF PREG W POOR REPRODCTV OR OBSTET HISTORY, UNSP TRI Status: Acute Priority: High Current Visit: Yes (7) Perineal laceration SNOMED Code(s): 323226292 Code(s): [id number] - Status: Acute Current Visit: Yes - Problem List Review Problem List Initiated/Reviewed/Updated: Yes - My Orders Last 24 Hours: My Active Orders 04/06/20 11:01 Peripheral IV Discontinue [OM.PC] Routine - Assessment Assessment:: 04/05/2020 29 yo delivered a male hemorrhage Perineal laceration repaired 04/06/20 PP period uncomplicated so far AVSS Hgb went from 12.7 to 12.0 Pain controlled fair to poor 04/07/20 PP period uncomplicated Pain controlled Bleeding light is still somewhat of a struggle and takes a lot of time per feed but is going much better than yesterday - Plan Plan:: 04/05/2020 29 yo here at 39 0/7 weeks gestation for a medical induction of labor due to history of macrosomic , history of PPH, history of moderate shoulder dystocia, history of large 3rd laceration with vacuum assisted delivery. Patient was explained risks and benefits of induction and patient desires and verbalizes understanding. SVE-1-/-2 FHTs category one Cytotec 50mcg placed vaginally Labs-A positive, Hep B neg, Hep C neg, HIV neg, RPR nonreactive, Rubella Immune, GBS negative, COVID negative Plan- Continue to monitor for labor Continue to monitor FHTS Patient may eat regular diet Patient may be up ad jim Patient may get in tub or shower Plan and anticipate a vaginal delivery 04/05/2020 Routine cares Encourage and support Encourage and support good perineal care CBC in am Plan discharge in 24-48 hours 04/06/20 Routine cares Perineal care support Anticipate discharge home tomorrow 04/07/20 Discharge home today 6 week check with Estephania Randle warning s/s
== END 2020-04-07 11:30 | disposition home or self-care (01) | DRG 560 ==
LOC: JP.OB 07:02 → OBSVTOIN 22:05 → JP.MS 04-06 02:00
PROVIDERS: ADMIT Advanced Practice Midwife; ATTEND Advanced Practice Midwife
PROC: 10E0XZZ Delivery of Products of Conception, External Approach (ICD-10-PCS; principal; 2020-04-05)
PROC: 10907ZC Drainage of Amniotic Fluid, Therapeutic from Products of Conception, Via Natural or Artificial Opening (ICD-10-PCS; 2020-04-05)
PROC: 3E0P7VZ Introduction of Hormone into Female Reproductive, Via Natural or Artificial Opening (ICD-10-PCS; 2020-04-05)
PROC: 0KQM0ZZ Repair Perineum Muscle, Open Approach (ICD-10-PCS; 2020-04-05)
DX: O69.81X0 Labor and delivery complicated by cord around neck, without compression, not applicable or unspecified (principal); Z3A.39 39 weeks gestation of pregnancy; Z37.0 Single live birth; O70.1 Second degree perineal laceration during delivery; O66.0 Obstructed labor due to shoulder dystocia; O72.1 Other immediate postpartum hemorrhage; Z20.822 Contact with and (suspected) exposure to COVID-19
CPT/HCPCS: 36415; 51702; 59409; 76818; 76818-26; 80305-QW; 81001; 85025; 99211; A9270-GY; J2210; J2590; J2795; J7030; U0002

== ENCOUNTER 2023-08-20 18:42 | Emergency (ER) | payer BC, MEDICAID ==
[2023-08-20 20:12] LABS: BASOPHILS ABSOLUTE AUTO 0.04 K/uL (0.00-0.10); BASOPHILS PERCENT AUTO 0.4 % (0.1-1.3); EOSINOPHILS ABSOLUTE AUTO 0.09 K/uL (0.00-0.40); EOSINOPHILS PERCENT AUTO 0.9 % (0.0-5.4); HEMATOCRIT 35.7 % (34.3-46.0); HEMOGLOBIN 12.6 g/dL (11.2-15.5); IMMATURE GRAN ABSOLUTE AUTO 0.03 K/uL (0.00-0.23); IMMATURE GRAN PERCENT AUTO 0.3 % (0.0-0.7); LYMPHOCYTES ABSOLUTE AUTO 2.35 K/uL (0.8-3.3); LYMPHOCYTES PERCENT AUTO 23.9 % (11.4-47.7); MEAN CORPUSCULAR HEMOGLOBIN 28.6 pg (31.6-35.5); MEAN CORPUSCULAR HGB CONC 35.3 g/dL (31.6-35.5); MONOCYTES PERCENT AUTO 6.1 % (3.3-12.6); NEUTROPHILS ABSOLUTE AUTO 6.72 K/uL (1.0-7.6); NEUTROPHILS PERCENT AUTO 68.4 % (40.0-78.1); PLATELET COUNT,PLT 211 K/uL (130-375); RED BLOOD CELL COUNT 4.41 M/uL (3.77-5.24); WHITE BLOOD CELL COUNT,WBC 9.8 K/uL (3.2-11.0)
== END 2023-08-20 23:00 | disposition home or self-care (01) ==
LOC: JP.ED 18:42
DX: N93.9 Abnormal uterine and vaginal bleeding, unspecified (principal); Z79.899 Other long term (current) drug therapy
CPT/HCPCS: 36415; 76856; 85025; 99283; 99284